=== PATIENT | female | born 2000 | race Caucasian/White ===

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

== ENCOUNTER 2020-01-30 21:28 | Emergency (ER) | payer OTHER ==
[2020-01-30 21:36] VITALS: RESP 18
--- NOTE | 2020-01-30 22:56 | US ---
EXAMINATION TYPE: US venous doppler duplex LE RT DATE OF EXAM: 01/30/2020 10:40 PM COMPARISON: NONE CLINICAL HISTORY: swelling. Swelling right leg x 3 days. No hx of DVT. Patient does not take blood th inners. SIDE PERFORMED: Right TECHNIQUE: The lower extremity deep venous system is examined utilizing real time linear array sonog denise with graded compression, doppler sonography and color-flow sonography. VESSELS IMAGED: External Iliac Vein (EIV) Common Femoral Vein Deep Femoral Vein Greater Saphenous Vein * Femoral Vein Popliteal Vein Small Saphenous Vein * Proximal Calf Veins (* superficial vessels) Right Leg: No evidence of DVT in veins imaged at this time from prox calf veins to EIV. Hypoechoic a freedom with hyperechoic center seen right groin: 2.1 x 1.8 x 0.8 cm. IMPRESSION: No evidence of right leg deep vein thrombosis. 2 x 1 cm right inguinal lymph node noted.
--- NOTE | 2020-01-30 23:05 | ED ---
Extremity Problem HPI - General Source: patient Mode of arrival: ambulatory Limitations: no limitations <Hailey Alfaro - Last Filed: 01/31/20 01:05> <Caron Miranda - Last Filed: 01/31/20 13:37> - General Chief complaint: Extremity Problem,Nontraumatic Stated complaint: R Leg Swelling Time Seen by Provider: 01/30/20 21:44 - History of Present Illness Initial comments: 19-year-old feel presenting for sunburn leg swelling. Patient states that both her legs were so swollen after getting sunburned the right more than left. Patient states that she was on a tube in one H hand. Plan any sunblock. Patient denies any calf pain. She states she is anterior muñoz pain at site of lopez, Denies peeling, blistering. Admits to redness. Denies history of DVT/PE. Denies chest pain SOB or difficulty lying flat. Patient has no additional complaints upon arrival she appears well no signs of acute distress. (Hailey Alfaro) - Related Data Home Medications Medication Instructions Recorded Confirmed Omeprazole [PriLOSEC] 20 mg PO AC-BRKFST PRN 01/30/20 01/30/20 Allergies Allergy/AdvReac Type Severity Reaction Status Date / Time bee venom protein (honey bee) Allergy Swelling Verified 01/30/20 22:10 Review of Systems ROS Other: All systems not noted in ROS Statement are negative. <Hailey Alfaro - Last Filed: 01/31/20 01:05> ROS Other: All systems not noted in ROS Statement are negative. <Caron Miranda - Last Filed: 01/31/20 13:37> ROS Statement: Those systems with pertinent positive or pertinent negative responses have been documented in the HPI. Past Medical History Past Medical History: GERD/Reflux Additional Past Medical History / Comment(s): hx kidney infections, History of Any Multi-Drug Resistant Organisms: None Reported Past Surgical History: No Surgical Hx Reported Additional Past Surgical History / Comment(s): pilonidal cyst removed Past Anesthesia/Blood Transfusion Reactions: No Reported Reaction Additional Past Anesthesia/Blood Transfusion Reaction / Comment(s): anesthesia with wisdom teeth Past Psychological History: ADD/ADHD Smoking Status: Current every day smoker Past Alcohol Use History: Occasional Past Drug Use History: None Reported - Past Family History Mother Additional Family Medical History / Comment(s): ADHD, hip dysplasia <Hailey Alfaro - Last Filed: 01/31/20 01:05> General Exam Limitations: no limitations <Hailey Alfaro - Last Filed: 01/31/20 01:05> - General Exam Comments Initial Comments: General: The patient is awake and alert, in no distress, and does not appear acutely ill. Eye: Pupils are equal, round and reactive to light, extra-ocular movements are intact. No nystagmus. There is normal conjunctiva bilaterally. No signs of icterus. Cardiovascular: There is a regular rate and rhythm. No murmur, rub or gallop is appreciated. Respiratory: Lungs are clear to auscultation, respirations are non-labored, breath sounds are equal. No wheezes, stridor, rales, or rhonchi. Musculoskeletal: Normal ROM, no tenderness. Strength 5/5. Sensation intact. Pulses equal bilaterally 2+. Neurological: A&O x 3. CN II-XII intact, There are no obvious motor or sensory deficits. Coordination appears grossly intact. Speech is normal. Skin: Skin is warm and dry and no rashes or lesions are noted. No pitting edema. mild right lower leg swelling. B/l anterior leg redness noted. no blistering. Psychiatric: Cooperative, appropriate mood & affect, normal judgment. (Hailey Alfaro) Course Vital Signs 01/30/20 01/30/20 21:33 23:09 Temperature 98.1 F 97.7 F Pulse Rate 90 82 Respiratory 18 18 Rate Blood Pressure 124/76 118/72 O2 Sat by Pulse 98 98 Oximetry Medical Decision Making <Hailey Alfaro - Last Filed: 01/31/20 01:05> <Caron Miranda - Last Filed: 01/31/20 13:37> - Medical Decision Making No CP/SOB. Lungs clear. US (-) DVT. Sun burn consistent with hx. I believe is cause of swelling .Recommend symptomatic treatment-aloe, hydration, elevation. patient is agreeable to this care plan and discharge at this time. (Hailey Alfaro) I was available for consultation in the emergency department. The history and physical exam were done by the midlevel provider. I was consulted for this patients care. I reviewed the case with the midlevel provider and based on their presentation of the patient, I agree with the assessment, medical decision making and plan of care as documented. Chart was dictated using [employer] dictation software. Attempts were made to correct any dictation errors however some typographical errors may persist. Patient was seen during the [facility] emergency due to the covid pandemic (Caron Miranda) Disposition Is patient prescribed a controlled substance at d/c from ED?: No Time of Disposition: 23:04 <Hailey Alfaro - Last Filed: 01/31/20 01:05> <Caron Miranda - Last Filed: 01/31/20 13:37> Clinical Impression: Sunburn, Lymphadenopathy Disposition: HOME SELF-CARE Condition: Good Instructions (If sedation given, give patient instructions): Sunburn (ED) Additional Instructions: Please use medication as discussed. Please follow-up with family doctor in the next 2 days- for right groin lymph node. Please return to emergency room if the symptoms increase or worsen or for any other concerns. Referrals: Rayshawn Jensen DO [Primary Care Provider] - 1-2 days
[2020-01-30 23:10] VITALS: BP 118/72; PULSE 82; TEMP 97.7
== END 2020-01-30 23:10 | disposition home or self-care (01) ==
LOC: EC 21:28
DX: L55.9 Sunburn, unspecified (principal); R59.1 Generalized enlarged lymph nodes; K21.9 Gastro-esophageal reflux disease without esophagitis; F17.200 Nicotine dependence, unspecified, uncomplicated; Z91.030 Bee allergy status
CPT/HCPCS: 99283

== ENCOUNTER 2020-03-07 03:51 | Emergency (ER) | payer OTHER ==
[2020-03-07 04:01] VITALS: BP 115/74; PULSE 101; RESP 18; TEMP 98
--- NOTE | 2020-03-07 04:18 | ED ---
Female Urogenital HPI - General Stated complaint: Blood in Urine, Back Pain Time Seen by Provider: 03/07/20 03:59 Source: patient Mode of arrival: ambulatory Limitations: no limitations - History of Present Illness MD Complaint: dysuria Onset/Timin -: hour(s) Location: suprapubic Radiation: non-radiating Severity: mild Quality: cramping, burning Consistency: intermittent Improves with: none Worsens with: urination Patient : No Associated Symptoms: denies other symptoms - Related Data Home Medications Medication Instructions Recorded Confirmed Omeprazole [PriLOSEC] 20 mg PO AC-BRKFST PRN 01/30/20 01/30/20 Previous Rx's Medication Instructions Recorded Cephalexin [Keflex] 500 mg PO Q6HR 3 Days #12 cap 03/07/20 Allergies Allergy/AdvReac Type Severity Reaction Status Date / Time bee venom protein (honey bee) Allergy Swelling Verified 03/07/20 04:01 Review of Systems ROS Statement: Those systems with pertinent positive or pertinent negative responses have been documented in the HPI. ROS Other: All systems not noted in ROS Statement are negative. Constitutional: Denies: fever, chills Respiratory: Denies: cough, dyspnea Cardiovascular: Denies: chest pain, edema Gastrointestinal: Reports: as per HPI, abdominal pain. Denies: nausea, vomiting, diarrhea, constipation Genitourinary: Reports: dysuria, frequency, hematuria. Denies: discharge, abnormal menses Musculoskeletal: Denies: back pain Skin: Denies: rash Neurological: Denies: headache Past Medical History Past Medical History: GERD/Reflux Additional Past Medical History / Comment(s): hx kidney infections, History of Any Multi-Drug Resistant Organisms: None Reported Past Surgical History: No Surgical Hx Reported Additional Past Surgical History / Comment(s): pilonidal cyst removed Past Anesthesia/Blood Transfusion Reactions: No Reported Reaction Additional Past Anesthesia/Blood Transfusion Reaction / Comment(s): anesthesia with wisdom teeth Past Psychological History: ADD/ADHD Smoking Status: Current every day smoker Past Alcohol Use History: Occasional Past Drug Use History: None Reported - Past Family History Mother Additional Family Medical History / Comment(s): ADHD, hip dysplasia General Exam Limitations: no limitations General appearance: alert, in no apparent distress Head exam: Present: atraumatic, normocephalic Eye exam: Present: normal appearance. Absent: scleral icterus, conjunctival injection Respiratory exam: Present: normal lung sounds bilaterally. Absent: respiratory distress, wheezes, rales, rhonchi, stridor Cardiovascular Exam: Present: regular rate, normal rhythm, normal heart sounds. Absent: systolic murmur, diastolic murmur, rubs, gallop GI/Abdominal exam: Present: soft. Absent: distended, tenderness, guarding, rebound, rigid, mass Extremities exam: Present: normal inspection, normal capillary refill. Absent: pedal edema Back exam: Absent: CVA tenderness (R), CVA tenderness (L) Skin exam: Present: warm, dry, intact, normal color. Absent: rash Course Vital Signs 03/07/20 03:57 Temperature 98 F Pulse Rate 101 H Respiratory 18 Rate Blood Pressure 115/74 O2 Sat by Pulse 98 Oximetry Medical Decision Making - Lab Data Lab Results 03/07/20 03/07/20 Range/Units 04:16 04:16 Urine Color Yellow Urine Appearance Clear (Clear) Urine pH 5.5 (5.0-8.0) Ur Specific [place] 1.029 (1.001-1.035) Urine Protein Negative (Negative) Urine Glucose (UA) Negative (Negative) Urine Ketones Negative (Negative) Urine Blood Negative (Negative) Urine Nitrite Negative (Negative) Urine Bilirubin Negative (Negative) Urine Urobilinogen <2.0 (<2.0) mg/dL Ur Leukocyte Esterase Trace H (Negative) Urine RBC 1 (0-5) /hpf Urine WBC 5 (0-5) /hpf Ur Squamous Epith Cells 3 (0-4) /hpf Urine Bacteria Rare H (None) /hpf Urine Mucus Few H (None) /hpf Urine HCG, Qual Not Detected (Not Detectd) Disposition Clinical Impression: Urinary tract infection, Caries Disposition: HOME SELF-CARE Condition: Good Instructions (If sedation given, give patient instructions): Urinary Tract Infection in Women (ED) Prescriptions: Cephalexin [Keflex] 500 mg PO Q6HR 3 Days #12 cap Is patient prescribed a controlled substance at d/c from ED?: No Referrals: Rayshawn Jensen DO [Primary Care Provider] - 1-2 days
[2020-03-07 04:27] LABS: Appearance,Urine Clear (Clear); Bacteria,Urine Rare /hpf; Bilirubin,Urine Negative (Negative); Blood,Urine Negative (Negative); Color,Urine Yellow; Glucose,Urine (UA) Negative (Negative); Ketones,Urine Negative (Negative); Leukocyte Esterase,Urine Trace (Negative); Mucus,Urine Few /hpf; Nitrite,Urine Negative (Negative); PH, Urine 5.5 (5.0-8.0); Protein,Urine Negative (Negative); RBC,Urine 1 /hpf (0-5); Specific Gravity,Urine 1.029 (1.001-1.035); Squamous Epithelial Cell,Urine 3 /hpf (0-4); Urobilinogen,Urine <2.0 mg/dL (<2.0); WBC,Urine 5 /hpf (0-5)
[2020-03-07] MEDS ORDERED: NITROFURANTOIN MONOHYD/M-CRYST 100 MG CAP PO STA (04:42)
== END 2020-03-07 05:35 | disposition home or self-care (01) ==
LOC: EC 03:51
DX: N39.0 Urinary tract infection, site not specified (principal); K02.9 Dental caries, unspecified; K21.9 Gastro-esophageal reflux disease without esophagitis; F17.200 Nicotine dependence, unspecified, uncomplicated; Z91.030 Bee allergy status
CPT/HCPCS: 81001; 81025; 99283

== ENCOUNTER 2020-09-02 18:35 | Emergency (ER) | payer OTHER ==
[2020-09-02 18:49] VITALS: TEMP 98.3
--- NOTE | 2020-09-02 19:27 | ED ---
General Adult HPI - General Chief complaint: Urogenital Stated complaint: female Source: patient, RN notes reviewed Mode of arrival: ambulatory Limitations: no limitations - History of Present Illness Initial comments: 19-year-old female with a past medical history of kidney infections, GERD presents to the emergency room for a chief complaint of vaginal pain. Patient reports that this started 4 days ago. States around the opening of her vagina feels bumpy. States it is painful. Patient states she has not had any significant discharge. Patient does state that she had sexual intercourse with a new partner about a month ago. Patient denies any abdominal pain. Patient denies fevers or chills.Patient has no other complaints at this time including shortness of breath, chest pain, abdominal pain, nausea or vomiting, headache, or visual changes. - Related Data Previous Rx's Medication Instructions Recorded Fluconazole [Diflucan] 150 mg PO DAILY #1 tab 09/02/20 valACYclovir [Valtrex] 1,000 mg PO BID 10 Days #40 tab 09/02/20 Allergies Allergy/AdvReac Type Severity Reaction Status Date / Time bee venom protein (honey bee) Allergy Swelling Verified 09/02/20 19:32 Review of Systems ROS Statement: Those systems with pertinent positive or pertinent negative responses have been documented in the HPI. ROS Other: All systems not noted in ROS Statement are negative. Past Medical History Past Medical History: GERD/Reflux Additional Past Medical History / Comment(s): hx kidney infections, History of Any Multi-Drug Resistant Organisms: None Reported Past Surgical History: No Surgical Hx Reported Additional Past Surgical History / Comment(s): pilonidal cyst removed Past Anesthesia/Blood Transfusion Reactions: No Reported Reaction Additional Past Anesthesia/Blood Transfusion Reaction / Comment(s): anesthesia with wisdom teeth Past Psychological History: ADD/ADHD Smoking Status: Current every day smoker Past Alcohol Use History: Occasional Past Drug Use History: None Reported - Past Family History Mother Additional Family Medical History / Comment(s): ADHD, hip dysplasia General Exam Limitations: no limitations General appearance: alert Head exam: Present: atraumatic, normal inspection Eye exam: Present: normal appearance, PERRL, EOMI ENT exam: Present: normal exam, mucous membranes moist Neck exam: Present: normal inspection, full ROM Respiratory exam: Present: normal lung sounds bilaterally. Absent: respiratory distress, wheezes Cardiovascular Exam: Present: regular rate, normal rhythm, normal heart sounds GI/Abdominal exam: Present: soft, normal bowel sounds. Absent: distended, tenderness, guarding, rebound, rigid External exam: Present: lesions (lesions around posterior vaginal os). Absent: erythema, swelling, lacerations, ecchymosis Speculum exam: Absent: other (refusing pelvic secondary to pain) Neurological exam: Present: alert Course Vital Signs 09/02/20 09/02/20 18:46 19:57 Temperature 98.3 F Pulse Rate 119 H 95 Respiratory 18 16 Rate Blood Pressure 123/86 120/66 O2 Sat by Pulse 99 100 Oximetry Medical Decision Making - Medical Decision Making Vitals are stable. Patient initially tachycardic however is very anxious. This did improve throughout her ER stay. No abdominal pain on exam. Patient does have small ulcerative lesions near the posterior vaginal os. No obvious discharge however patient cannot tolerate a pelvic exam at this time given her pain and refuses to try. Urinalysis is unremarkable. HCG negative. Patient did self swab for Trichomonas and genital culture. Trichomonas negative. Culture pending. Gonorrhea and chlamydia pending. I did swab lesions for possible herpes. At this time clinically is consistent with a initial herpes outbreak. She will be treated with valacyclovir. However patient is also concerned this could be bumps from a yeast infection. She denies any itching and is requesting treatment for this. Patient will be given Diflucan. Patient does have an appointment with her [facility] in the next month. She will call to see if she can get in earlier. She has any worsening symptoms she will return to the emergency room. - Lab Data Lab Results 09/02/20 09/02/20 09/02/20 Range/Units 19:50 19:50 20:00 Urine Color Yellow Urine Appearance Cloudy H (Clear) Urine pH 6.5 (5.0-8.0) Ur Specific [place] 1.024 (1.001-1.035) Urine Protein Trace H (Negative) Urine Glucose (UA) Negative (Negative) Urine Ketones Negative (Negative) Urine Blood Negative (Negative) Urine Nitrite Negative (Negative) Urine Bilirubin Negative (Negative) Urine Urobilinogen <2.0 (<2.0) mg/dL Ur Leukocyte Esterase Small H (Negative) Urine RBC 3 (0-5) /hpf Urine WBC 4 (0-5) /hpf Ur Squamous Epith Cells 9 H (0-4) /hpf Urine Bacteria Rare H (None) /hpf Urine Mucus Many H (None) /hpf Urine Yeast (Budding) Few H (None) /hpf Urine HCG, Qual Not Detected (Not Detectd) Trichomonas Ag (Rapid) Negative (Negative) Disposition Clinical Impression: Genital lesion, female Disposition: HOME SELF-CARE Condition: Good Instructions (If sedation given, give patient instructions): Genital Herpes Simplex (ED) Additional Instructions: Please take medications as directed. You're being treated for a possible herpes outbreak, also a yeast infection. Please follow-up with your [facility]. Call to see if you can get an earlier appointment. Return to the emergency room for any worsening symptoms. Prescriptions: Fluconazole [Diflucan] 150 mg PO DAILY #1 tab valACYclovir [Valtrex] 1,000 mg PO BID 10 Days #40 tab Is patient prescribed a controlled substance at d/c from ED?: No Referrals: Rayshawn Jensen DO [Primary Care Provider] - 1-2 days Time of Disposition: 20:34
[2020-09-02 19:58] VITALS: BP 120/66; PULSE 95; RESP 16
[2020-09-02 20:10] LABS: Appearance,Urine Cloudy (Clear); Bacteria,Urine Rare /hpf; Bilirubin,Urine Negative (Negative); Blood,Urine Negative (Negative); Budding Yeast,Urine Few /hpf; Color,Urine Yellow; Glucose,Urine (UA) Negative (Negative); Ketones,Urine Negative (Negative); Leukocyte Esterase,Urine Small (Negative); Mucus,Urine Many /hpf; Nitrite,Urine Negative (Negative); PH, Urine 6.5 (5.0-8.0); Protein,Urine Trace (Negative); RBC,Urine 3 /hpf (0-5); Specific Gravity,Urine 1.024 (1.001-1.035); Squamous Epithelial Cell,Urine 9 /hpf (0-4); Urobilinogen,Urine <2.0 mg/dL (<2.0); WBC,Urine 4 /hpf (0-5)
== END 2020-09-02 20:58 | disposition home or self-care (01) ==
LOC: EC 18:35
DX: N94.89 Other specified conditions associated with female genital organs and menstrual cycle (principal); F17.200 Nicotine dependence, unspecified, uncomplicated; Z91.030 Bee allergy status
CPT/HCPCS: 81001; 81025; 87070; 87491; 87529; 87591; 87808; 99283

== ENCOUNTER 2020-09-09 19:21 | Emergency (ER) | payer OTHER ==
[2020-09-09 19:26] VITALS: TEMP 98
[2020-09-09] MEDS ORDERED: SODIUM CHLORIDE 0.9% 1,000 ML IV ONE (19:49)
[2020-09-09] MEDS ORDERED: MAGNESIUM CITRATE 296 ML BOTTLE PO ONE (19:49)
[2020-09-09 20:09] LABS: HGB 15.4 gm/dL (11.4-16.0); RBC 5.54 m/uL (3.80-5.40); WBC 9.6 k/uL (4.0-11.0)
[2020-09-09 20:10] LABS: Basophils # (A) 0.1 k/uL (0-0.2); Basophils % (A) 1 %; Eosinophils # (A) 0.3 k/uL (0-0.7); Eosinophils % (A) 3 %; Lymphocytes # (A) 2.3 k/uL (1.0-4.8); Lymphocytes % (A) 24 %; MCH 27.8 pg (25.0-35.0); MCHC 32.8 g/dL (31.0-37.0); MCV 84.8 fL (80.0-100.0); Mean Platelet Volume 6.6; Monocytes # (A) 0.5 k/uL (0-1.0); Monocytes % (A) 5 %; Neutrophils # (A) 6.2 k/uL (1.3-7.7); Neutrophils % (A) 65 %; Platelet Count 294 k/uL (150-450); RDW 12.6 % (11.5-15.5)
--- NOTE | 2020-09-09 20:13 | XR ---
EXAMINATION TYPE: XR KUB DATE OF EXAM: 09/09/2020 COMPARISON: NONE HISTORY: Abdominal pain TECHNIQUE: 2 views upright FINDINGS: There is no sign of intestinal obstruction or pneumoperitoneum. Fecal pattern is normal. Th ere is no sign of a mass. There are no pathologic calcifications over the kidneys. Lung bases are jaylin ar. IMPRESSION: Nonacute abdomen.
[2020-09-09 20:25] LABS: African American GFR (CKD) >90 (>60 ml/min/1.73 sqM); Anion Gap 10 mmol/L; Blood Urea Nitrogen 8 mg/dL (7-17); Carbon Dioxide 22 mmol/L (22-30); Chloride 105 mmol/L (98-107); Glucose 87 mg/dL (74-99); Potassium 4.5 mmol/L (3.5-5.1); Sodium 137 mmol/L (137-145)
[2020-09-09 20:26] LABS: ALT 17 U/L (4-34); AST 25 U/L (14-36); Albumin 4.6 g/dL (3.5-5.0); Alkaline Phosphatase 91 U/L (38-126); Calcium 9.9 mg/dL (8.4-10.2); Non-African American GFR(CKD) >90 (>60 ml/min/1.73 sqM); Total Bilirubin 0.4 mg/dL (0.2-1.3)
[2020-09-09 20:59] VITALS: BP 120/62; PULSE 82; RESP 18
--- NOTE | 2020-09-09 22:43 | ED ---
Abdominal Pain HPI - General Chief Complaint: Abdominal Pain Stated Complaint: Constipation Time Seen by Provider: 09/09/20 19:32 Source: patient Mode of arrival: ambulatory Limitations: no limitations - History of Present Illness Initial Comments: [id number] female presenting for diffuse abdominal distention, constipation. Patient states she is out of bowel movement 3 days she states she still passing gas she denies a nausea vomiting upper abdominal pain. She states she is diffuse mid abdominal distention and discomfort at times. Patient states she has no dysuria urgency frequency. She states she now feels a fullness in her back. Patient sates she has had history of kidney infections. Patient denies any fevers chills general malaise. Patient states that she did take her grandmother's pain medications and is not sure if this is related. she states she only took 1.5 pills a day ago patient denies , vaginal bleeding, vaginal discharge. pt denies additional complaints. pt states she has taken miralax. - Related Data Home Medications Medication Instructions Recorded Confirmed Methylphenidate HCl 18 mg PO DAILY 09/09/20 09/09/20 [Methylphenidate HCl ER] Omeprazole [PriLOSEC] 20 mg PO DAILY PRN 09/09/20 09/09/20 Previous Rx's Medication Instructions Recorded valACYclovir [Valtrex] 1,000 mg PO BID 10 Days #40 tab 09/02/20 Allergies Allergy/AdvReac Type Severity Reaction Status Date / Time bee venom protein (honey bee) Allergy Swelling Verified 09/09/20 19:26 Review of Systems ROS Statement: Those systems with pertinent positive or pertinent negative responses have been documented in the HPI. ROS Other: All systems not noted in ROS Statement are negative. Past Medical History Past Medical History: GERD/Reflux Additional Past Medical History / Comment(s): hx kidney infections, History of Any Multi-Drug Resistant Organisms: None Reported Past Surgical History: No Surgical Hx Reported Additional Past Surgical History / Comment(s): pilonidal cyst removed Past Anesthesia/Blood Transfusion Reactions: No Reported Reaction Additional Past Anesthesia/Blood Transfusion Reaction / Comment(s): anesthesia with wisdom teeth Past Psychological History: ADD/ADHD Smoking Status: Current every day smoker Past Alcohol Use History: Occasional Past Drug Use History: None Reported - Past Family History Mother Additional Family Medical History / Comment(s): ADHD, hip dysplasia General Exam - General Exam Comments Initial Comments: General: The patient is awake and alert, in no distress Eye: +3 mm pupils are equal, round and reactive to light, extra-ocular movements are intact. No nystagmus. There is normal conjunctiva bilaterally. No signs of icterus. Ears, nose, mouth and throat: There are moist mucous membranes and no oral lesions. Neck: The neck is supple, there is no tenderness or JVD. Cardiovascular: There is a regular rate and rhythm. No murmur, rub or gallop is appreciated. Respiratory: Lungs are clear to auscultation, respirations are non-labored, breath sounds are equal. No wheezes, stridor, rales, or rhonchi. Gastrointestinal: Soft, non-distended, mild diffuse mid abdominal tenderness, abdomen without masses or organomegaly noted. There is no rebound or guarding present. Musculoskeletal: Normal ROM, no tenderness. Strength 5/5. Sensation intact. Radial and DP pulses equal bilaterally 2+. Neurological: A&O x 3. CN II-XII intact grossly, There are no obvious motor or sensory deficits. Coordination appears grossly intact. Speech is normal. Skin: Skin is warm and dry and no rashes or lesions are noted. Psychiatric: Cooperative, appropriate mood & affect, normal judgment. Limitations: no limitations Course Vital Signs 09/09/20 09/09/20 19:23 20:26 Temperature 98.0 F Pulse Rate 130 H 82 Respiratory 20 18 Rate Blood Pressure 120/81 120/62 O2 Sat by Pulse 96 Oximetry Medical Decision Making - Medical Decision Making 19yo female presenting for constipation x 3 days. no fecal impaction on xr. no obstruction. patient does not appear to have acute abdomen. pt cannot provide urine sample, became frustrated and wanted to leave. initially i considered discharing patien tbut at this time feel uncomfortable with final disposition without urinalysis. offered enema/catheterization patient she continued to refuse. Patient states just wants to go home and try to poop she states she would come back if she is unable to have a bowel movement. I discussed my discomfort with discharge, pt left AMA. Attending Gus - Lab Data Result diagrams: 09/09/20 19:54 09/09/20 19:56 Lab Results 09/09/20 09/09/20 Range/Units 19:54 19:56 WBC 9.6 (4.0-11.0) k/uL RBC 5.54 H (3.80-5.40) m/uL Hgb 15.4 (11.4-16.0) gm/dL Hct 47.0 H (34.0-46.0) % MCV 84.8 (80.0-100.0) fL MCH 27.8 (25.0-35.0) pg MCHC 32.8 (31.0-37.0) g/dL RDW 12.6 (11.5-15.5) % Plt Count 294 (150-450) k/uL MPV 6.6 Neutrophils % 65 % Lymphocytes % 24 % Monocytes % 5 % Eosinophils % 3 % Basophils % 1 % Neutrophils # 6.2 (1.3-7.7) k/uL Lymphocytes # 2.3 (1.0-4.8) k/uL Monocytes # 0.5 (0-1.0) k/uL Eosinophils # 0.3 (0-0.7) k/uL Basophils # 0.1 (0-0.2) k/uL Sodium 137 (137-145) mmol/L Potassium 4.5 (3.5-5.1) mmol/L Chloride 105 (98-107) mmol/L Carbon Dioxide 22 (22-30) mmol/L Anion Gap 10 mmol/L BUN 8 (7-17) mg/dL Creatinine 0.73 (0.52-1.04) mg/dL Est GFR (CKD-EPI)AfAm >90 (>60 ml/min/1.73 sqM) Est GFR (CKD-EPI)NonAf >90 (>60 ml/min/1.73 sqM) Glucose 87 (74-99) mg/dL Calcium 9.9 (8.4-10.2) mg/dL Total Bilirubin 0.4 (0.2-1.3) mg/dL AST 25 (14-36) U/L ALT 17 (4-34) U/L Alkaline Phosphatase 91 (38-126) U/L Total Protein 8.0 (6.3-8.2) g/dL Albumin 4.6 (3.5-5.0) g/dL Disposition Clinical Impression: Constipation Disposition: Left Against Medical Advice Condition: Undetermined Instructions (If sedation given, give patient instructions): Constipation (DC), High Fiber Diet (ED) Additional Instructions: Please use medication as discussed. Please follow-up with family doctor in the next 2 days. Please return to emergency room if the symptoms increase or worsen or for any other concerns. Is patient prescribed a controlled substance at d/c from ED?: No Referrals: Rayshawn Jensen DO [Primary Care Provider] - 1-2 days Time of Disposition: 22:43
[2020-09-09] MEDS ORDERED: GLYCERIN ADULT SUPPOSITORY 1 EACH RECTAL STA (22:57)
== END 2020-09-09 23:16 | disposition left against medical advice (07) ==
LOC: EC 19:21
DX: K59.00 Constipation, unspecified (principal); K21.9 Gastro-esophageal reflux disease without esophagitis; F17.200 Nicotine dependence, unspecified, uncomplicated; F90.9 Attention-deficit hyperactivity disorder, unspecified type; Z91.030 Bee allergy status; Z79.899 Other long term (current) drug therapy
CPT/HCPCS: 36415; 74018; 80053; 85025; 96360; 99284

== ENCOUNTER 2021-03-24 00:09 | Emergency (ER) | payer OTHER ==
[2021-03-24 00:15] VITALS: RESP 22
[2021-03-24] MEDS ORDERED: IBUPROFEN 600 MG STARTER PACK 4 TAB BTL PO STA (00:28)
[2021-03-24] MEDS ORDERED: ACETAMINOPHEN TAB 500 MG TAB PO STA (00:28)
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
--- NOTE | 2021-03-24 01:29 | XR ---
EXAMINATION TYPE: XR shoulder complete LT DATE OF EXAM: 03/24/2021 COMPARISON: NONE HISTORY: Shoulder pain TECHNIQUE: 3 views FINDINGS: I see no fracture nor dislocation. Joint spaces are normal. There are no pathologic calcifi cations. IMPRESSION: Negative left shoulder exam.
[2021-03-24 01:42] VITALS: BP 127/78; PULSE 78; TEMP 98
== END 2021-03-24 01:41 | disposition home or self-care (01) ==
LOC: EC 00:09
DX: S46.912A Strain of unspecified muscle, fascia and tendon at shoulder and upper arm level, left arm, initial encounter (principal); K21.9 Gastro-esophageal reflux disease without esophagitis; F90.9 Attention-deficit hyperactivity disorder, unspecified type; F32.9 Major depressive disorder, single episode, unspecified; F17.200 Nicotine dependence, unspecified, uncomplicated; Z91.030 Bee allergy status; X50.0XXA Overexertion from strenuous movement or load, initial encounter
CPT/HCPCS: 99283

== ENCOUNTER 2021-03-27 01:23 | Emergency (ER) | payer OTHER ==
[2021-03-27 01:30] VITALS: RESP 18; TEMP 98.9
[2021-03-27] MEDS ORDERED: IBUPROFEN 400 MG TAB PO STA (01:45)
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
--- NOTE | 2021-03-27 02:37 | XR ---
EXAMINATION TYPE: XR ankle complete LT DATE OF EXAM: 03/27/2021 COMPARISON: NONE HISTORY: Pain TECHNIQUE: 3 views FINDINGS: Ankle mortise is anatomic. I see no fracture nor dislocation. Joint spaces are fairly alphonse l. IMPRESSION: Negative left ankle exam. No fracture.
--- NOTE | 2021-03-27 02:38 | XR ---
EXAMINATION TYPE: XR foot complete LT DATE OF EXAM: 03/27/2021 COMPARISON: NONE HISTORY: Pain TECHNIQUE: 3 views FINDINGS: Metatarsals appear intact. The toes appear intact. I see no fracture nor dislocation. There is some soft tissue swelling of the forefoot. IMPRESSION: Soft tissue swelling. No fracture.
[2021-03-27 03:11] VITALS: BP 120/68; PULSE 95
== END 2021-03-27 03:11 | disposition home or self-care (01) ==
LOC: EC 01:23
DX: S99.922A Unspecified injury of left foot, initial encounter (principal); K21.9 Gastro-esophageal reflux disease without esophagitis; F90.9 Attention-deficit hyperactivity disorder, unspecified type; F32.9 Major depressive disorder, single episode, unspecified; F17.200 Nicotine dependence, unspecified, uncomplicated; Y04.0XXA Assault by unarmed brawl or fight, initial encounter
CPT/HCPCS: 99284

== ENCOUNTER → 2021-05-20 | Outpatient (CLI) | payer OTHER ==
--- NOTE | 2021-05-21 08:09 | US ---
EXAMINATION TYPE: US pelvic complete DATE OF EXAM: 05/20/2021 COMPARISON: NONE CLINICAL HISTORY: R10.2 pelvic pain N92.1 Metrorrhagia. Irregular Menstruation, TECHNIQUE: Transabdominal (TA). Transabdominal sonographic images of the pelvis were acquired. Date of LMP: Unknow date 03/2021 EXAM MEASUREMENTS: Uterus: 8.0 x 3.9 x 2.8 cm Endometrial Stripe: 0.8 cm Right Ovary: 3.4 x 2.6 x 1.8 cm Left Ovary: 3.4 x 2.1 x 1.9 cm 1. Uterus: Anteverted wnl 2. Endometrium: wnl 3. Right Ovary: wnl 4. Left Ovary: wnl 5. Bilateral Adnexa: wnl 6. Posterior cul-de-sac: wnl IMPRESSION: 1. Normal pelvic ultrasound
== END | disposition home or self-care (01) ==
LOC: RADUSWWP 16:21
PROVIDERS: ATTEND Obstetrics & Gynecology
DX: N92.1 Excessive and frequent menstruation with irregular cycle (principal)
CPT/HCPCS: 76856

== ENCOUNTER → 2021-07-23 | Outpatient (CLI) | payer OTHER ==
--- NOTE | 2021-07-23 08:00 | US ---
EXAMINATION TYPE: US abdomen complete DATE OF EXAM: 07/23/2021 COMPARISON: 2019 CLINICAL HISTORY: K81.0 Acute cholecystitis. Patient ate before exam, patient states she has bloatin g after eating. EXAM MEASUREMENTS: Liver Length: 13.2 cm Gallbladder Wall: 0.2 cm CBD: 0.3 cm Spleen: 7.7 cm Right Kidney: 9.3x5.0x5.2 cm Left Kidney: 11.6x4.8x5.4 cm Pancreas: Obscured by bowel gas Liver: wnl Gallbladder: Gallstone noted, 0.6cm Evidence for sonographic Perrin's sign: No CBD: wnl Spleen: wnl, Limited due to bowel Right Kidney: wnl Left Kidney: wnl Upper IVC: wnl Abd Aorta: wnl IMPRESSION: 1. Cholelithiasis
== END | disposition home or self-care (01) ==
LOC: RADUSWWP 07:24
PROVIDERS: ATTEND Family Medicine
DX: K80.20 Calculus of gallbladder without cholecystitis without obstruction (principal)
CPT/HCPCS: 76700

== ENCOUNTER 2021-08-28 00:35 | Emergency (ER) | payer OTHER ==
[2021-08-28 00:49] VITALS: RESP 18; TEMP 97.7
[2021-08-28] MEDS ORDERED: SODIUM CHLORIDE 0.9% 1,000 ML IV STA (01:14)
--- NOTE | 2021-08-28 01:16 | ED ---
Syncope HPI - General Chief Complaint: Syncope Stated Complaint: Near Syncope Time Seen by Provider: 08/28/21 00:43 Source: patient, EMS Mode of arrival: EMS - History of Present Illness Initial Comments: 's patient is a 20-year-old woman who presents to be evaluated after she had nearly passed out. Patient states she had been in the shower tonight and then started feeling lightheaded. She got out of the shower she had an episode of vomiting with a little bit of greenish material she then was feeling short of breath for. EMS was called and brought the patient here for evaluation. Patient states that her symptoms have resolved and she feels nearly back to normal now. MD Complaint: felt faint, almost passed out -: minutes(s) Prodromal Symptoms: lightheaded, shortness of breath, nausea/vomiting Witnessed: no Injuries Sustained Associated with Event: None Current Symptoms: back to baseline Context: other Treatments Prior to Arrival: none - Related Data Home Medications Medication Instructions Recorded Confirmed Omeprazole [PriLOSEC] 20 mg PO DAILY PRN 09/09/20 08/08/21 Albuterol Inhaler [Ventolin Hfa 1 puff INHALATION DIRECTED PRN 08/01/21 08/08/21 Inhaler] EPINEPHrine (Auto Inject) [Epipen] 0.3 mg IM ONCE PRN 08/01/21 08/08/21 Ibuprofen 800 mg PO Q8H PRN 08/01/21 08/08/21 Previous Rx's Medication Instructions Recorded Acetaminophen Tab [Tylenol] 650 mg PO Q6H #30 tab 08/08/21 Docusate [Colace] 100 mg PO BID #20 capsule 08/08/21 Ibuprofen [Motrin] 600 mg PO Q6HR PRN #40 tab 08/08/21 oxyCODONE HCL [OxyIR] 5 mg PO Q6H PRN 3 Days #10 tab 08/08/21 Allergies Allergy/AdvReac Type Severity Reaction Status Date / Time bee venom protein (honey bee) Allergy Swelling Verified 08/08/21 07:01 tide Allergy Rash/Hives Uncoded 08/08/21 07:01 Review of Systems ROS Statement: Those systems with pertinent positive or pertinent negative responses have been documented in the HPI. ROS Other: All systems not noted in ROS Statement are negative. Constitutional: Denies: fever, chills, weakness Respiratory: Reports: dyspnea. Denies: cough, wheezes, hemoptysis Cardiovascular: Denies: chest pain, palpitations, edema Gastrointestinal: Reports: nausea, vomiting. Denies: abdominal pain, diarrhea, constipation, hematemesis Genitourinary: Reports: abnormal menses. Denies: dysuria, hematuria Musculoskeletal: Denies: back pain Skin: Denies: rash Neurological: Denies: headache, weakness, numbness Past Medical History Past Medical History: Asthma, GERD/Reflux Additional Past Medical History / Comment(s): Hx kidney infections. "Stomach issues." Hx "chest pain and suspected Covid 07/12/21." History of Any Multi-Drug Resistant Organisms: None Reported Past Surgical History: No Surgical Hx Reported, Cholecystectomy Additional Past Surgical History / Comment(s): Pilonidal cyst removed. [place] teeth extracted. Past Anesthesia/Blood Transfusion Reactions: Motion Sickness Additional Past Anesthesia/Blood Transfusion Reaction / Comment(s): anesthesia with wisdom teeth Past Psychological History: ADD/ADHD, Anxiety, Depression Smoking Status: Former smoker, Vaper Past Alcohol Use History: Occasional Past Drug Use History: Marijuana - Past Family History Mother Additional Family Medical History / Comment(s): ADHD, hip dysplasia. General Exam General appearance: alert, in no apparent distress Head exam: Present: atraumatic, normocephalic Eye exam: Present: PERRL, EOMI. Absent: scleral icterus, conjunctival injection Neck exam: Present: normal inspection Respiratory exam: Present: normal lung sounds bilaterally. Absent: respiratory distress, wheezes, rales, rhonchi, stridor Cardiovascular Exam: Present: regular rate, normal rhythm, normal heart sounds. Absent: systolic murmur, diastolic murmur, rubs, gallop GI/Abdominal exam: Present: soft, other (Patient has laparoscopy incisions that are clean dry and intact. No evidence of infection. They appear to be healing well). Absent: distended, tenderness, guarding, rebound, rigid, mass Extremities exam: Present: normal inspection, normal capillary refill. Absent: pedal edema, calf tenderness Back exam: Present: normal inspection. Absent: CVA tenderness (R), CVA tenderness (L) Neurological exam: Present: alert, oriented X3, CN II-XII intact. Absent: motor sensory deficit Skin exam: Present: warm, dry, intact, normal color. Absent: rash Course Vital Signs 08/28/21 00:37 Temperature 97.7 F Pulse Rate 97 Respiratory 18 Rate Blood Pressure 114/81 O2 Sat by Pulse 100 Oximetry EKG Findings - EKG Results: EKG: interpreted by KATIED, sinus rhythm (With sinus arrhythmia, rate 72 bpm), normal axis, normal QRS, normal ST/T, no acute changes Medical Decision Making - Lab Data Result diagrams: 08/28/21 01:19 08/28/21 01:19 Lab Results 08/28/21 08/28/21 08/28/21 Range/Units 01:19 01:19 01:19 WBC 9.3 (4.0-11.0) k/uL RBC 4.32 (3.80-5.40) m/uL Hgb 12.6 (11.4-16.0) gm/dL Hct 38.7 (34.0-46.0) % MCV 89.5 (80.0-100.0) fL MCH 29.2 (25.0-35.0) pg MCHC 32.7 (31.0-37.0) g/dL RDW 12.4 (11.5-15.5) % Plt Count 285 (150-450) k/uL MPV 7.0 Neutrophils % 64 % Lymphocytes % 27 % Monocytes % 6 % Eosinophils % 2 % Basophils % 0 % Neutrophils # 6.0 (1.3-7.7) k/uL Lymphocytes # 2.5 (1.0-4.8) k/uL Monocytes # 0.5 (0-1.0) k/uL Eosinophils # 0.1 (0-0.7) k/uL Basophils # 0.0 (0-0.2) k/uL PT 10.5 (9.0-12.0) sec INR 1.0 (<1.2) APTT 24.6 (22.0-30.0) sec D-Dimer <0.17 (<0.60) mg/L FEU Sodium 137 (137-145) mmol/L Potassium 4.3 (3.5-5.1) mmol/L Chloride 106 (98-107) mmol/L Carbon Dioxide 25 (22-30) mmol/L Anion Gap 6 mmol/L BUN 11 (7-17) mg/dL Creatinine 0.76 (0.52-1.04) mg/dL Est GFR (CKD-EPI)AfAm >90 (>60 ml/min/1.73 sqM) Est GFR (CKD-EPI)NonAf >90 (>60 ml/min/1.73 sqM) Glucose 90 (74-99) mg/dL Calcium 9.5 (8.4-10.2) mg/dL Total Bilirubin 0.4 (0.2-1.3) mg/dL AST 17 (14-36) U/L ALT 10 (4-34) U/L Alkaline Phosphatase 71 (38-126) U/L Total Protein 6.7 (6.3-8.2) g/dL Albumin 4.0 (3.5-5.0) g/dL Urine Color Urine Appearance (Clear) Urine pH (5.0-8.0) Ur Specific [place] (1.001-1.035) Urine Protein (Negative) Urine Glucose (UA) (Negative) Urine Ketones (Negative) Urine Blood (Negative) Urine Nitrite (Negative) Urine Bilirubin (Negative) Urine Urobilinogen (<2.0) mg/dL Ur Leukocyte Esterase (Negative) Urine RBC (0-5) /hpf Urine WBC (0-5) /hpf Ur Squamous Epith Cells (0-4) /hpf Urine Mucus (None) /hpf Urine HCG, Qual (Not Detectd) 08/28/21 08/28/21 Range/Units 01:32 01:32 WBC (4.0-11.0) k/uL RBC (3.80-5.40) m/uL Hgb (11.4-16.0) gm/dL Hct (34.0-46.0) % MCV (80.0-100.0) fL MCH (25.0-35.0) pg MCHC (31.0-37.0) g/dL RDW (11.5-15.5) % Plt Count (150-450) k/uL MPV Neutrophils % % Lymphocytes % % Monocytes % % Eosinophils % % Basophils % % Neutrophils # (1.3-7.7) k/uL Lymphocytes # (1.0-4.8) k/uL Monocytes # (0-1.0) k/uL Eosinophils # (0-0.7) k/uL Basophils # (0-0.2) k/uL PT (9.0-12.0) sec INR (<1.2) APTT (22.0-30.0) sec D-Dimer (<0.60) mg/L FEU Sodium (137-145) mmol/L Potassium (3.5-5.1) mmol/L Chloride (98-107) mmol/L Carbon Dioxide (22-30) mmol/L Anion Gap mmol/L BUN (7-17) mg/dL Creatinine (0.52-1.04) mg/dL Est GFR (CKD-EPI)AfAm (>60 ml/min/1.73 sqM) Est GFR (CKD-EPI)NonAf (>60 ml/min/1.73 sqM) Glucose (74-99) mg/dL Calcium (8.4-10.2) mg/dL Total Bilirubin (0.2-1.3) mg/dL AST (14-36) U/L ALT (4-34) U/L Alkaline Phosphatase (38-126) U/L Total Protein (6.3-8.2) g/dL Albumin (3.5-5.0) g/dL Urine Color Yellow Urine Appearance Clear (Clear) Urine pH 7.5 (5.0-8.0) Ur Specific [place] 1.023 (1.001-1.035) Urine Protein Trace H (Negative) Urine Glucose (UA) Negative (Negative) Urine Ketones Negative (Negative) Urine Blood Moderate H (Negative) Urine Nitrite Negative (Negative) Urine Bilirubin Negative (Negative) Urine Urobilinogen <2.0 (<2.0) mg/dL Ur Leukocyte Esterase Negative (Negative) Urine RBC 5 (0-5) /hpf Urine WBC 1 (0-5) /hpf Ur Squamous Epith Cells 2 (0-4) /hpf Urine Mucus Few H (None) /hpf Urine HCG, Qual Not Detected (Not Detectd) Disposition Clinical Impression: Near syncope Disposition: HOME SELF-CARE Condition: Good Instructions (If sedation given, give patient instructions): Near Syncope (ED) Is patient prescribed a controlled substance at d/c from ED?: No Referrals: Rayshawn Jensen DO [Primary Care Provider] - 1-2 days
[2021-08-28 01:42] LABS: Basophils % (A) 0 %; Eosinophils # (A) 0.1 k/uL (0-0.7); Eosinophils % (A) 2 %; HCT 38.7 % (34.0-46.0); HGB 12.6 gm/dL (11.4-16.0); Lymphocytes # (A) 2.5 k/uL (1.0-4.8); Lymphocytes % (A) 27 %; MCH 29.2 pg (25.0-35.0); MCHC 32.7 g/dL (31.0-37.0); MCV 89.5 fL (80.0-100.0); Monocytes # (A) 0.5 k/uL (0-1.0); Monocytes % (A) 6 %; Neutrophils % (A) 64 %; Platelet Count 285 k/uL (150-450); RBC 4.32 m/uL (3.80-5.40); RDW 12.4 % (11.5-15.5); WBC 9.3 k/uL (4.0-11.0)
[2021-08-28 01:56] LABS: Partial Thromboplastin Time 24.6 sec (22.0-30.0); Prothrombin Time 10.5 sec (9.0-12.0)
[2021-08-28 02:01] LABS: ALT 10 U/L (4-34); AST 17 U/L (14-36); African American GFR (CKD) >90 (>60 ml/min/1.73 sqM); Alkaline Phosphatase 71 U/L (38-126); Anion Gap 6 mmol/L; Blood Urea Nitrogen 11 mg/dL (7-17); Calcium 9.5 mg/dL (8.4-10.2); Carbon Dioxide 25 mmol/L (22-30); Chloride 106 mmol/L (98-107); Glucose 90 mg/dL (74-99); Non-African American GFR(CKD) >90 (>60 ml/min/1.73 sqM); Potassium 4.3 mmol/L (3.5-5.1); Sodium 137 mmol/L (137-145); Total Bilirubin 0.4 mg/dL (0.2-1.3); Total Protein 6.7 g/dL (6.3-8.2)
--- NOTE | 2021-08-28 02:03 | XR ---
EXAMINATION TYPE: XR chest 1V portable DATE OF EXAM: 08/28/2021 COMPARISON: 09/13/2019 HISTORY: Syncope TECHNIQUE: FINDINGS: Heart is normal. Lungs are clear of infiltrate. There is no heart failure. Pulmonary vascul arity is normal. Bony thorax is intact. IMPRESSION: Normal chest. There is clearing of the minimal density left lung base compared to old exa m.
[2021-08-28 02:10] LABS: Appearance,Urine Clear (Clear); Bilirubin,Urine Negative (Negative); Blood,Urine Moderate (Negative); Color,Urine Yellow; Glucose,Urine (UA) Negative (Negative); Ketones,Urine Negative (Negative); Leukocyte Esterase,Urine Negative (Negative); Mucus,Urine Few /hpf; Nitrite,Urine Negative (Negative); PH, Urine 7.5 (5.0-8.0); Protein,Urine Trace (Negative); RBC,Urine 5 /hpf (0-5); Specific Gravity,Urine 1.023 (1.001-1.035); Squamous Epithelial Cell,Urine 2 /hpf (0-4); Urobilinogen,Urine <2.0 mg/dL (<2.0); WBC,Urine 1 /hpf (0-5)
[2021-08-28 03:11] VITALS: BP 110/74; PULSE 85
== END 2021-08-28 03:11 | disposition home or self-care (01) ==
LOC: EC 00:35
DX: R55 Syncope and collapse (principal); J45.909 Unspecified asthma, uncomplicated; K21.9 Gastro-esophageal reflux disease without esophagitis; F41.9 Anxiety disorder, unspecified; F32.A Depression, unspecified; F12.90 Cannabis use, unspecified, uncomplicated; Z90.49 Acquired absence of other specified parts of digestive tract; F90.9 Attention-deficit hyperactivity disorder, unspecified type; Z87.891 Personal history of nicotine dependence
CPT/HCPCS: 36415; 71045; 80053; 81001; 81025; 85025; 85379; 85610; 85730; 93005; 99285

== ENCOUNTER 2021-09-23 00:38 | Emergency (ER) | payer OTHER ==
[2021-09-23 00:45] VITALS: TEMP 98.5
[2021-09-23] MEDS ORDERED: KETOROLAC 15 MG/ML 1 ML VIAL IVP STA (01:03)
[2021-09-23] MEDS ORDERED: SODIUM CHLORIDE 0.9% 500 ML 500 ML IV STA (01:03)
--- NOTE | 2021-09-23 01:11 | ED ---
General Adult HPI - General Chief complaint: Abdominal Pain Stated complaint: RLQ pain Time Seen by Provider: 09/23/21 01:00 Source: patient, RN notes reviewed, old records reviewed Mode of arrival: ambulatory - History of Present Illness Initial comments: 20-year-old female presents with complaints of pelvic pain for one week. She states that it is her lower abdomen that is painful, is intermittent and achy in nature. She states that she is due to start her period tomorrow. She is sexually active, unknown if she is . Denies any dysuria or vaginal discharge. She states that ovarian cancer runs in her family. She does have a history of cholecystectomy, GERD and asthma. -: week(s) (1) Location: pelvis Radiation: non-radiation Severity scale (1-10): 5 Quality: aching Consistency: intermittent Associated Symptoms: denies other symptoms - Related Data Home Medications Medication Instructions Recorded Confirmed Omeprazole [PriLOSEC] 20 mg PO DAILY PRN 09/09/20 08/08/21 Albuterol Inhaler [Ventolin Hfa 1 puff INHALATION DIRECTED PRN 08/01/21 08/08/21 Inhaler] EPINEPHrine (Auto Inject) [Epipen] 0.3 mg IM ONCE PRN 08/01/21 08/08/21 Ibuprofen 800 mg PO Q8H PRN 08/01/21 08/08/21 Previous Rx's Medication Instructions Recorded Acetaminophen Tab [Tylenol] 650 mg PO Q6H #30 tab 08/08/21 Docusate [Colace] 100 mg PO BID #20 capsule 08/08/21 Ibuprofen [Motrin] 600 mg PO Q6HR PRN #40 tab 08/08/21 oxyCODONE HCL [OxyIR] 5 mg PO Q6H PRN 3 Days #10 tab 08/08/21 Allergies Allergy/AdvReac Type Severity Reaction Status Date / Time bee venom protein (honey bee) Allergy Swelling Verified 09/23/21 00:45 tide Allergy Rash/Hives Uncoded 09/23/21 00:45 Review of Systems ROS Statement: Those systems with pertinent positive or pertinent negative responses have been documented in the HPI. ROS Other: All systems not noted in ROS Statement are negative. Past Medical History Past Medical History: Asthma, GERD/Reflux Additional Past Medical History / Comment(s): Hx kidney infections. "Stomach issues." Hx "chest pain and suspected Covid 07/12/21." History of Any Multi-Drug Resistant Organisms: None Reported Past Surgical History: No Surgical Hx Reported, Cholecystectomy Additional Past Surgical History / Comment(s): Pilonidal cyst removed. [place] teeth extracted. Past Anesthesia/Blood Transfusion Reactions: Motion Sickness Additional Past Anesthesia/Blood Transfusion Reaction / Comment(s): anesthesia with wisdom teeth Past Psychological History: ADD/ADHD, Anxiety, Depression Smoking Status: Former smoker, Vaper Past Alcohol Use History: Occasional Past Drug Use History: Marijuana - Past Family History Mother Additional Family Medical History / Comment(s): ADHD, hip dysplasia. General Exam Limitations: no limitations General appearance: alert, in no apparent distress Eye exam: Present: normal appearance. Absent: scleral icterus, conjunctival i njection Respiratory exam: Present: normal lung sounds bilaterally. Absent: respiratory distress, chest wall tenderness, accessory muscle use Cardiovascular Exam: Present: regular rate GI/Abdominal exam: Present: soft, tenderness (Lower abdominal pain). Absent: distended Extremities exam: Present: normal inspection, normal capillary refill. Absent: tenderness, pedal edema Back exam: Present: normal inspection, full ROM. Absent: tenderness, CVA tenderness (R), CVA tenderness (L), rash noted Neurological exam: Present: alert, oriented X3 Psychiatric exam: Present: normal affect, normal mood Skin exam: Present: warm, dry, intact, normal color. Absent: cyanosis, diaphoretic Course Vital Signs 09/23/21 09/23/21 00:41 03:06 Temperature 98.5 F Pulse Rate 94 65 Respiratory 18 16 Rate Blood Pressure 118/74 124/78 O2 Sat by Pulse 100 96 Oximetry Medical Decision Making - Medical Decision Making 20-year-old female presents with complaints of intermittent pelvic pain for one week. She is due to start her period tomorrow. Abdomen is soft and minimally tender lower abdomen. She denies any dysuria or vaginal bleeding or vaginal discharge. Denies fevers. Patient did have a normal pelvic ultrasound 05/20/2021 for pelvic pain and menorrhagia that showed normal pelvic ultrasound, ovaries are within normal limits normal endometrium. There is no evidence of leukocytosis, hemoglobin and hematocrit are stable. Electrolytes are unremarkable. Lactic acid is negative. Urinalysis shows no sign of infection. Urine test is negative. Upon reexam, patient's abdomen is minimally tender. There are no masses felt. I suspect that this pain is premenstrual. She was directed to take Motrin and increase her fluid intake. I did write a prescription for the patient had an outpatient ultrasound and the results forwarded to Dr. Rayshawn Jensen her primary care doctor. She was directed to return to the emergency room with any new concerning symptoms. Patient is ag reeable to this plan of care. - Lab Data Result diagrams: 09/23/21 01:04 09/23/21 01:04 Lab Results 09/23/21 09/23/21 09/23/21 Range/Units 01:04 01:04 01:04 WBC 7.9 (4.0-11.0) k/uL RBC 4.51 (3.80-5.40) m/uL Hgb 13.1 (11.4-16.0) gm/dL Hct 40.7 (34.0-46.0) % MCV 90.1 (80.0-100.0) fL MCH 28.9 (25.0-35.0) pg MCHC 32.1 (31.0-37.0) g/dL RDW 12.8 (11.5-15.5) % Plt Count 265 (150-450) k/uL MPV 6.9 Neutrophils % 65 % Lymphocytes % 27 % Monocytes % 5 % Eosinophils % 1 % Basophils % 0 % Neutrophils # 5.1 (1.3-7.7) k/uL Lymphocytes # 2.1 (1.0-4.8) k/uL Monocytes # 0.4 (0-1.0) k/uL Eosinophils # 0.1 (0-0.7) k/uL Basophils # 0.0 (0-0.2) k/uL Sodium (137-145) mmol/L Potassium (3.5-5.1) mmol/L Chloride (98-107) mmol/L Carbon Dioxide (22-30) mmol/L Anion Gap mmol/L BUN (7-17) mg/dL Creatinine (0.52-1.04) mg/dL Est GFR (CKD-EPI)AfAm (>60 ml/min/1.73 sqM) Est GFR (CKD-EPI)NonAf (>60 ml/min/1.73 sqM) Glucose (74-99) mg/dL Plasma Lactic Acid [place] (0.7-2.0) mmol/L Calcium (8.4-10.2) mg/dL Total Bilirubin (0.2-1.3) mg/dL AST (14-36) U/L ALT (4-34) U/L Alkaline Phosphatase (38-126) U/L Total Protein (6.3-8.2) g/dL Albumin (3.5-5.0) g/dL Amylase (30-110) U/L Lipase (23-300) U/L Urine Color Yellow Urine Appearance Cloudy H (Clear) Urine pH 5.5 (5.0-8.0) Ur Specific [place] 1.020 (1.001-1.035) Urine Protein Negative (Negative) Urine Glucose (UA) Negative (Negative) Urine Ketones Negative (Negative) Urine Blood Negative (Negative) Urine Nitrite Negative (Negative) Urine Bilirubin Negative (Negative) Urine Urobilinogen <2.0 (<2.0) mg/dL Ur Leukocyte Esterase Moderate H (Negative) Urine RBC 1 (0-5) /hpf Urine WBC 5 (0-5) /hpf Ur Squamous Epith Cells 8 H (0-4) /hpf Urine Bacteria Occasional H (None) /hpf Hyaline Casts 1 (0-2) /lpf Urine Mucus Many H (None) /hpf Urine HCG, Qual Not Detected (Not Detectd) 09/23/21 09/23/21 Range/Units 01:04 01:04 WBC (4.0-11.0) k/uL RBC (3.80-5.40) m/uL Hgb (11.4-16.0) gm/dL Hct (34.0-46.0) % MCV (80.0-100.0) fL MCH (25.0-35.0) pg MCHC (31.0-37.0) g/dL RDW (11.5-15.5) % Plt Count (150-450) k/uL MPV Neutrophils % % Lymphocytes % % Monocytes % % Eosinophils % % Basophils % % Neutrophils # (1.3-7.7) k/uL Lymphocytes # (1.0-4.8) k/uL Monocytes # (0-1.0) k/uL Eosinophils # (0-0.7) k/uL Basophils # (0-0.2) k/uL Sodium 135 L (137-145) mmol/L Potassium 4.2 (3.5-5.1) mmol/L Chloride 103 (98-107) mmol/L Carbon Dioxide 23 (22-30) mmol/L Anion Gap 9 mmol/L BUN 10 (7-17) mg/dL Creatinine 0.70 (0.52-1.04) mg/dL Est GFR (CKD-EPI)AfAm >90 (>60 ml/min/1.73 sqM) Est GFR (CKD-EPI)NonAf >90 (>60 ml/min/1.73 sqM) Glucose 79 (74-99) mg/dL Plasma Lactic Acid [place] 0.6 L (0.7-2.0) mmol/L Calcium 9.2 (8.4-10.2) mg/dL Total Bilirubin 0.6 (0.2-1.3) mg/dL AST 29 (14-36) U/L ALT 12 (4-34) U/L Alkaline Phosphatase 59 (38-126) U/L Total Protein 7.8 (6.3-8.2) g/dL Albumin 4.8 (3.5-5.0) g/dL Amylase 37 (30-110) U/L Lipase 67 (23-300) U/L Urine Color Urine Appearance (Clear) Urine pH (5.0-8.0) Ur Specific [place] (1.001-1.035) Urine Protein (Negative) Urine Glucose (UA) (Negative) Urine Ketones (Negative) Urine Blood (Negative) Urine Nitrite (Negative) Urine Bilirubin (Negative) Urine Urobilinogen (<2.0) mg/dL Ur Leukocyte Esterase (Negative) Urine RBC (0-5) /hpf Urine WBC (0-5) /hpf Ur Squamous Epith Cells (0-4) /hpf Urine Bacteria (None) /hpf Hyaline Casts (0-2) /lpf Urine Mucus (None) /hpf Urine HCG, Qual (Not Detectd) Disposition Clinical Impression: Pelvic pain Disposition: HOME SELF-CARE Condition: Good Instructions (If sedation given, give patient instructions): Pelvic Pain in Women (ED) Additional Instructions: Continue to take Tylenol and Motrin as needed for pain. Call to schedule the ultrasound prescribed for evaluation of ovaries and uterus. The results should be sent to your primary care doctor so call and make an appointment next week. Return to the emergency room with any new or concerning symptoms. Is patient prescribed a controlled substance at d/c from ED?: No Referrals: Rayshawn Jensen DO [Primary Care Provider] - 1-2 days Time of Disposition: 02:55
[2021-09-23 01:41] LABS: Basophils % (A) 0 %; Eosinophils # (A) 0.1 k/uL (0-0.7); Eosinophils % (A) 1 %; HCT 40.7 % (34.0-46.0); HGB 13.1 gm/dL (11.4-16.0); Lymphocytes # (A) 2.1 k/uL (1.0-4.8); Lymphocytes % (A) 27 %; MCH 28.9 pg (25.0-35.0); MCHC 32.1 g/dL (31.0-37.0); MCV 90.1 fL (80.0-100.0); Mean Platelet Volume 6.9; Monocytes # (A) 0.4 k/uL (0-1.0); Monocytes % (A) 5 %; Neutrophils # (A) 5.1 k/uL (1.3-7.7); Neutrophils % (A) 65 %; Platelet Count 265 k/uL (150-450); RBC 4.51 m/uL (3.80-5.40); RDW 12.8 % (11.5-15.5); WBC 7.9 k/uL (4.0-11.0)
[2021-09-23 01:56] LABS: Appearance,Urine Cloudy (Clear); Bacteria,Urine Occasional /hpf; Bilirubin,Urine Negative (Negative); Blood,Urine Negative (Negative); Color,Urine Yellow; Glucose,Urine (UA) Negative (Negative); Hyaline Casts,Urine 1 /lpf (0-2); Ketones,Urine Negative (Negative); Leukocyte Esterase,Urine Moderate (Negative); Mucus,Urine Many /hpf; Nitrite,Urine Negative (Negative); PH, Urine 5.5 (5.0-8.0); Protein,Urine Negative (Negative); RBC,Urine 1 /hpf (0-5); Squamous Epithelial Cell,Urine 8 /hpf (0-4); Urobilinogen,Urine <2.0 mg/dL (<2.0); WBC,Urine 5 /hpf (0-5)
[2021-09-23 02:12] LABS: ALT 12 U/L (4-34); AST 29 U/L (14-36); African American GFR (CKD) >90 (>60 ml/min/1.73 sqM); Albumin 4.8 g/dL (3.5-5.0); Alkaline Phosphatase 59 U/L (38-126); Amylase 37 U/L (30-110); Anion Gap 9 mmol/L; Blood Urea Nitrogen 10 mg/dL (7-17); Calcium 9.2 mg/dL (8.4-10.2); Carbon Dioxide 23 mmol/L (22-30); Chloride 103 mmol/L (98-107); Glucose 79 mg/dL (74-99); Lipase 67 U/L (23-300); Non-African American GFR(CKD) >90 (>60 ml/min/1.73 sqM); Potassium 4.2 mmol/L (3.5-5.1); Sodium 135 mmol/L (137-145); Total Bilirubin 0.6 mg/dL (0.2-1.3); Total Protein 7.8 g/dL (6.3-8.2)
[2021-09-23 03:07] VITALS: BP 124/78; PULSE 65; RESP 16
== END 2021-09-23 03:06 | disposition home or self-care (01) ==
LOC: EC 00:38
DX: R10.2 Pelvic and perineal pain (principal); K21.9 Gastro-esophageal reflux disease without esophagitis; J45.909 Unspecified asthma, uncomplicated; F41.9 Anxiety disorder, unspecified; F32.A Depression, unspecified; F90.9 Attention-deficit hyperactivity disorder, unspecified type; F12.90 Cannabis use, unspecified, uncomplicated; Z87.891 Personal history of nicotine dependence; Z79.899 Other long term (current) drug therapy
CPT/HCPCS: 99284; 96374; 96361; 36415; 80053; 82150; 83605; 83690; 85025; 81001; 81025; J1885

== ENCOUNTER 2022-05-15 14:42 | Outpatient (CLI) | payer OTHER ==
[2022-05-15 15:48] VITALS: BP 117/67; PULSE 98; RESP 18; TEMP 96.8
--- NOTE | 2022-05-15 18:33 | P.MSEPDOC ---
Presenting Problems - Arrival Data Date of Arrival on Unit: 05/15/22 Time of Arrival on Unit: 14:42 Mode of Transport: Ambulatory - Complaint OB-Reason for Admission/Chief Complaint: Pain Comment: pt presents to triage for lower abd pain and groin pain, rates 4/10 now but stated it was 10/10 earlier Medical History - Information : 1 Para: 0 Term: 0 : 0 Abortions: Spontaneous or Elective: 0 Number of Living Children: 0 - Gestational Age Gestational Age by RYAN (wks/days): 23 Weeks and 4 Days - History Complications: Smoker Comment: pt jose Review of Systems - Review of Systems Constitutional: No problems Breast: No problems ENT: No problems Cardiovascular: No problems Respiratory: No problems Gastrointestinal: No problems Genitourinary: No problems Musculoskeletal: No problems Neurological: No problems Skin: No problems Vital Signs - Temperature Temperature: 96.8 F Temperature Source: Temporal Artery Scan - Pulse Right Brachial Pulse Rate: 98 Pulse Assessment Method: Automatic Cuff - Respirations Respiratory Rate: 18 Oxygen Delivery Method: Room Air O2 Sat by Pulse Oximetry: 100 - Blood Pressure Right Arm Blood Pressure: 117/67 Blood Pressure Mean: 83 Blood Pressure Source: Automatic Cuff Medical Screen Scoring - Cervical Exam Dilation (cm): 0 - Assessment - Baby A Baseline FHR: 150 Heart Rate - NICHD Category: Category I (Normal) Physician Notification - Physician Notified Physician Notified Date: 05/15/22 Physician Notified Time: 15:00 Physician: Pily Alvarado Order Received: Yes - Notification Comment Comment: FHT's 150's for 23 weeks GA, cervical exam closed/thick/high, pt given instructions to use support belt at home, no s/s of UTI per pt, discharged home with instructions to follow up with Dr. Nolan at next scheduled appt Maternal Triage Index - Maternal Triage Index Presenting for scheduled procedure w/no complaint: No - Stat/Priority 1 Stat Priority 1: No - Urgent/Priority 2 Urgent Priority 2: No - Prompt/Priority 3 Prompt Priority 3: No - Non-Urgent/Priority 4 Non-Urgent Priority 4: Yes Criteria Met for Priority 4: pt presents to triage for lower abd pain and groin pain, rates 4/10 now but stated it was 10/10 earlier Disposition - Disposition OB Disposition: Triage, Discharge to home, Written follow up instructions reviewed Discharge Date: 05/15/22 Discharge Time: 15:25 I agree with the RN Medical Screening Exam: Yes Case reviewed; plan agreed upon as documented in EMR&OBIX.: Yes Diagnosis: RELATED CONDITIONS, UNSPECIFIED, SECOND TRIMESTER
== END 2022-05-15 15:25 | disposition home or self-care (01) ==
LOC: FBPOP 14:42
PROVIDERS: ATTEND Obstetrics & Gynecology
DX: O26.892 Other specified pregnancy related conditions, second trimester (principal); Z3A.23 23 weeks gestation of pregnancy
CPT/HCPCS: 99213

== ENCOUNTER 2022-06-30 10:18 | Outpatient (CLI) | payer OTHER ==
[2022-06-30] MEDS ORDERED: LACTATED RINGERS 1,000 ML IV SCH (11:15)
[2022-06-30] MEDS ORDERED: FAMOTIDINE 20 MG/2 ML VIAL IV SCH (11:30)
[2022-06-30] MEDS ORDERED: ONDANSETRON 4 MG/2 ML VIAL IVP STA (11:57)
[2022-06-30 14:08] VITALS: BP 127/83; PULSE 121; RESP 16; TEMP 97.5
--- NOTE | 2022-07-21 21:00 | P.MSEPDOC ---
Presenting Problems - Arrival Data Date of Arrival on Unit: 06/30/22 Time of Arrival on Unit: 10:18 Mode of Transport: Ambulatory - Complaint OB-Reason for Admission/Chief Complaint: Acute Nausea/Vomiting, Pain Comment: upper abd pain, rates 9 on scale of 0-10 Medical History - Information : 1 Para: 0 Term: 0 : 0 Abortions: Spontaneous or Elective: 0 Number of Living Children: 0 - Gestational Age Gestational Age by RYAN (wks/days): 30 Weeks and 2 Days Review of Systems - Review of Systems Constitutional: No problems Breast: No problems ENT: No problems Cardiovascular: No problems Respiratory: No problems Gastrointestinal: No problems Genitourinary: No problems Musculoskeletal: No problems Neurological: No problems Skin: No problems Vital Signs - Temperature Temperature: 97.5 F Temperature Source: Temporal Artery Scan - Pulse Right Sitting Pulse Rate: 121 Pulse Assessment Method: Automatic Cuff - Respirations Respiratory Rate: 16 Oxygen Delivery Method: Room Air - Blood Pressure Right Arm Blood Pressure: 127/83 Blood Pressure Mean: 97 Blood Pressure Source: Automatic Cuff Medical Screen Scoring - Cervical Exam Dilation (cm): 0 - Assessment - Baby A Baseline FHR: 145 Heart Rate - NICHD Category: Category I (Normal) NST: Reactive Physician Notification - Physician Notified Physician Notified Date: 06/30/22 Physician Notified Time: 13:43 Physician: Pily Alvarado Order Received: Yes (D/C home) Maternal Triage Index - Non-Urgent/Priority 4 Non-Urgent Priority 4: Yes Criteria Met for Priority 4: upper abd pain, nausea and vomiting, few contractions on monitor, reactive nst Disposition - Disposition OB Disposition: Discharge to home, Written follow up instructions reviewed Discharge Date: 06/30/22 Discharge Time: 13:50 I agree with the RN Medical Screening Exam: Yes Case reviewed; plan agreed upon as documented in EMR&OBIX.: Yes Diagnosis: PAIN, UNSPECIFIED
== END 2022-06-30 13:50 | disposition home or self-care (01) ==
LOC: FBPOP 10:18
PROVIDERS: ATTEND Obstetrics & Gynecology
DX: O26.893 Other specified pregnancy related conditions, third trimester (principal); Z3A.30 30 weeks gestation of pregnancy; R52 Pain, unspecified; F17.200 Nicotine dependence, unspecified, uncomplicated; Z91.030 Bee allergy status; Z91.048 Other nonmedicinal substance allergy status
CPT/HCPCS: 59025; 96361; 96374; 96375; G0463; J2405; 99214

== ENCOUNTER 2022-08-01 01:40 | Outpatient (CLI) | payer OTHER ==
[2022-08-01 03:31] VITALS: BP 119/70; PULSE 97; RESP 18; TEMP 97.7
--- NOTE | 2022-08-01 07:31 | P.MSEPDOC ---
Presenting Problems - Arrival Data Date of Arrival on Unit: 08/01/22 Time of Arrival on Unit: 01:40 Mode of Transport: Ambulatory - Complaint OB-Reason for Admission/Chief Complaint: Possible Onset of Labor Comment: patient presents to triage for complaints of lower abdominal pain that started at 2300. Medical History - Information : 1 Para: 0 - Gestational Age Gestational Age by RYAN (wks/days): 34 Weeks and 5 Days Review of Systems - Review of Systems Constitutional: No problems Breast: No problems ENT: No problems Cardiovascular: No problems Respiratory: No problems Gastrointestinal: No problems Genitourinary: No problems Musculoskeletal: No problems Neurological: No problems Skin: No problems Vital Signs - Temperature Temperature: 97.7 F Temperature Source: Temporal Artery Scan - Pulse Pulse Oximetery Pulse Rate: 97 Pulse Assessment Method: Pulse Oximetry - Respirations Respiratory Rate: 18 Oxygen Delivery Method: Room Air O2 Sat by Pulse Oximetry: 98 - Blood Pressure Right Arm Blood Pressure: 119/70 Blood Pressure Mean: 86 Blood Pressure Source: Automatic Cuff Medical Screen Scoring - Cervical Exam Membranes: Intact - Uterine Contractions Intensity: Absent Resting: Soft to palpation - Assessment - Baby A Baseline FHR: 145 Heart Rate - NICHD Category: Category I (Normal) NST: Reactive Physician Notification - Physician Notified Physician Notified Date: 08/01/22 Physician Notified Time: 03:04 Physician: Jaxon Josue Order Received: Yes (discharge home) Maternal Triage Index - Maternal Triage Index Presenting for scheduled procedure w/no complaint: No - Stat/Priority 1 Stat Priority 1: No - Urgent/Priority 2 Urgent Priority 2: No - Prompt/Priority 3 Prompt Priority 3: Yes Criteria Met for Priority 3: Patient presents to triage for lower abdominal pain. No cervical change after 1 hour. Patients cervix is closed thick and high. Disposition - Disposition OB Disposition: Discharge to home I agree with the RN Medical Screening Exam: Yes Case reviewed; plan agreed upon as documented in EMR&OBIX.: Yes Diagnosis: FALSE LABOR BEFORE 37 COMPLETED WEEKS OF GEST, THIRD TRI
== END 2022-08-01 03:31 ==
LOC: FBPOP 01:40
PROVIDERS: ATTEND Obstetrics & Gynecology
DX: O47.03 False labor before 37 completed weeks of gestation, third trimester (principal); Z3A.34 34 weeks gestation of pregnancy; O99.333 Smoking (tobacco) complicating pregnancy, third trimester; Z91.030 Bee allergy status; Z91.048 Other nonmedicinal substance allergy status
CPT/HCPCS: 59025; G0463; 99213

== ENCOUNTER 2022-08-09 01:55 | Outpatient (CLI) | payer OTHER ==
[2022-08-09 03:08] VITALS: BP 138/83; PULSE 88; RESP 16; TEMP 97.8
--- NOTE | 2022-08-25 02:07 | P.MSEPDOC ---
Presenting Problems - Arrival Data Date of Arrival on Unit: 08/09/22 Time of Arrival on Unit: 01:55 Mode of Transport: Ambulatory - Complaint OB-Reason for Admission/Chief Complaint: Possible Onset of Labor Comment: Patient arrived to triage with intermittent lower abdominal pain that. started today. Patient states that pain comes and goes pain earlier in the day was a. 10/10 and is currently a 5/10 intermittently. Patient denies any sexual activity within. 24 hours, denies leaking of fluid or bleeding, patient is feeling baby move. Abdomen on. exam for RN is soft to palpation. Patient denies any complications with . Medical History - Information : 1 Para: 0 Term: 0 : 0 Abortions: Spontaneous or Elective: 0 Number of Living Children: 0 - Gestational Age Gestational Age by RYAN (wks/days): 35 Weeks and 6 Days Review of Systems - Review of Systems Constitutional: No problems Breast: No problems ENT: No problems Cardiovascular: No problems Respiratory: No problems Gastrointestinal: No problems Genitourinary: No problems Musculoskeletal: No problems Neurological: No problems Skin: No problems Vital Signs - Temperature Temperature: 97.8 F Temperature Source: Temporal Artery Scan - Pulse Pulse Oximetery Pulse Rate: 88 Pulse Assessment Method: Automatic Cuff - Respirations Respiratory Rate: 16 Oxygen Delivery Method: Room Air O2 Sat by Pulse Oximetry: 100 - Blood Pressure Right Arm Blood Pressure: 138/83 Blood Pressure Mean: 101 Blood Pressure Source: Automatic Cuff Medical Screen Scoring - Cervical Exam Dilation (cm): 1 Effacement (%): 60 Station: -2 - Uterine Contractions Resting: Soft to palpation - Assessment - Baby A Baseline FHR: 125 Heart Rate - NICHD Category: Category I (Normal) NST: Reactive Physician Notification - Physician Notified Physician Notified Date: 08/09/22 Physician Notified Time: 02:37 Physician: Nedra Nolan New Order Received: Yes - Notification Comment Comment: Dr. Nolan aware of patients c/o lower abdominal pain, cervical check, FHR ,UC,. vitals, Pain. Dr. Nolan is discharging patient with orders to hydrate. Maternal Triage Index - Prompt/Priority 3 Prompt Priority 3: Yes Criteria Met for Priority 3: Patient arrived to triage with intermittent lower abdominal pain that. started today. Patient states that pain comes and goes pain earlier in the day was a. 10/10 and is currently a 5/10 intermittently. Patient denies any sexual activity within. 24 hours, denies leaking of fluid or bleeding, patient is feeling baby move. Abdomen on. exam for RN is soft to palpation. Patient denies any complications with . Disposition - Disposition OB Disposition: Discharge to home Discharge Date: 08/09/22 Discharge Time: 02:43 I agree with the RN Medical Screening Exam: Yes Case reviewed; plan agreed upon as documented in EMR&OBIX.: Yes Diagnosis: PRIMARY INADEQUATE CONTRACTIONS
== END 2022-08-09 02:43 | disposition home or self-care (01) ==
LOC: FBPOP 01:55
PROVIDERS: ATTEND Obstetrics & Gynecology
DX: O62.0 Primary inadequate contractions (principal); Z3A.35 35 weeks gestation of pregnancy; Z91.030 Bee allergy status; O99.333 Smoking (tobacco) complicating pregnancy, third trimester; Z91.048 Other nonmedicinal substance allergy status
CPT/HCPCS: 59025; G0463; 99213

== ENCOUNTER 2022-08-11 13:57 | Inpatient (IN) | payer OTHER ==
[2022-08-11] MEDS ORDERED: LIDOCAINE 0.5% (PF) 5 MG/ML (50 ML SDV) SQ PRN (14:43)
[2022-08-11] MEDS ORDERED: TERBUTALINE 1 MG/ML VIAL SQ PRN (14:43)
[2022-08-11] MEDS ORDERED: OXYTOCIN 30 UNITS/500 ML NS 30 UNIT in SALINE 1 500ML.BAG IV SCH ×2 (14:45→23:45)
[2022-08-11] MEDS: LACTATED RINGERS 1,000 ML IV SCH ×2 (15:14→19:03)
[2022-08-11 15:23] LABS: Basophils % (A) 0 %; Eosinophils # (A) 0.1 k/uL (0-0.7); Eosinophils % (A) 1 %; HCT 41.2 % (34.0-46.0); HGB 13.6 gm/dL (11.4-16.0); Lymphocytes # (A) 1.3 k/uL (1.0-4.8); Lymphocytes % (A) 13 %; MCH 28.5 pg (25.0-35.0); MCV 86.2 fL (80.0-100.0); Mean Platelet Volume 8.2; Monocytes # (A) 0.6 k/uL (0-1.0); Monocytes % (A) 6 %; Neutrophils # (A) 7.8 k/uL (1.3-7.7); Neutrophils % (A) 78 %; Platelet Count 213 k/uL (150-450); RBC 4.78 m/uL (3.80-5.40)
[2022-08-11 15:43] LABS: ALT 13 U/L (4-34); AST 23 U/L (14-36); African American GFR (CKD) >90 (>60 ml/min/1.73 sqM); Blood Urea Nitrogen 4 mg/dL (7-17); LDH 506 U/L (313-618); Non-African American GFR(CKD) >90 (>60 ml/min/1.73 sqM); Uric Acid 4.8 mg/dL (3.7-7.4)
[2022-08-11] MEDS ORDERED: AMPICILLIN 2,000 MG in SODIUM CHLORIDE 0.9% 100 ML IVPB STA (18:02)
[2022-08-11] MEDS ORDERED: BUTORPHANOL 1 MG/ML 1 ML VIAL IV PRN (18:11)
--- NOTE | 2022-08-11 18:22 | P.HPOB ---
History of Present Illness H&P Date: 08/11/22 Chief Complaint: Leaking fluid. This patient is a 21-year-old 1 para 0 female estimated date of confinement 09/07/2022 estimated gestational age 36 and one sevenths weeks who presents to labor and delivery with complaints of gush of fluid that occurred earlier today. Evaluation here in labor and delivery shows her to have gross rupture membranes with a positive amnio sure. care is per Dr. 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 Patient however was referred to maternal- medicine and ultrasound was normal. Patient's also had swelling over the last several weeks with a normal blood pressure. Review of Systems Genitourinary: Reports Menstruation: Reports amenorrhea Past Medical History Past Medical History: Asthma, GERD/Reflux Additional Past Medical History / Comment(s): Hx kidney infections. "Stomach issues." Hx "chest pain and suspected Covid 07/12/21." History of Any Multi-Drug Resistant Organisms: None Reported Past Surgical History: No Surgical Hx Reported, Cholecystectomy Additional Past Surgical History / Comment(s): Pilonidal cyst removed. [place] teeth extracted. Past Anesthesia/Blood Transfusion Reactions: Motion Sickness Additional Past Anesthesia/Blood Transfusion Reaction / Comment(s): anesthesia with wisdom teeth Past Psychological History: ADD/ADHD, Anxiety, Depression Additional Psychological History / Comment(s): ADHD. Smoking Status: Never smoker Past Alcohol Use History: Occasional Additional Past Alcohol Use History / Comment(s): Smoked from age 14 to 06/15, 1/2ppd, now vapes. Past Drug Use History: Marijuana Additional Drug Use History / Comment(s): Not during - Past Family History Mother Additional Family Medical History / Comment(s): ADHD, hip dysplasia. Medications and Allergies Home Medications Medication Instructions Recorded Confirmed Type Omeprazole [PriLOSEC] 20 mg PO DAILY PRN 09/09/20 08/11/22 History Albuterol Inhaler [Ventolin Hfa 1 puff INHALATION DIRECTED PRN 08/01/21 08/11/22 History Inhaler] EPINEPHrine (Auto Inject) [Epipen] 0.3 mg IM ONCE PRN 08/01/21 08/11/22 History Allergies Allergy/AdvReac Type Severity Reaction Status Date / Time bee venom protein (honey bee) Allergy Swelling Verified 08/11/22 14:18 tide Allergy Rash/Hives Uncoded 08/11/22 14:18 Exam Vital Signs Temp Pulse Resp BP Pulse Ox 08/11/22 15:25 98.3 F 104 H 16 136/83 96 Intake and Output 08/11/22 08/11/22 08/11/22 06:59 14:59 22:59 Other: Weight 102.512 kg 102.512 kg - OBG Physical Exam Abdomen: bowel sounds normal, no diffuse tenderness, no bruit present, no guarding noted, no hepatomegaly, no splenomegaly, no mass Vulva: both: normal Vagina: normal moisture, no discharge Cervix: no lesion (Cervix is 3-4 cm 50% effaced), no discharge Uterus: enlarged Results blood work shows she is O positive, rubella immune, RPR is nonreactive, hepatitis B is negative, HIV is nonreactive, toxoplasmosis was negative. Level III ultrasound is normal. Group B strep was negative, most recent ultrasound in the office showed vertex presentation 5 lbs. 2 oz. the 25th to the 50th percentile. Result Diagrams: 08/11/22 15:08 08/11/22 14:44 Abnormal Lab Results - Last 24 Hours (Table) 08/11/22 08/11/22 Range/Units 14:44 15:08 Neutrophils # 7.8 H (1.3-7.7) k/uL BUN 4 L (7-17) mg/dL Creatinine 0.38 L (0.52-1.04) mg/dL Assessment and Plan Assessment: This is a 21-year-old 1 para 0 female 36 and one sevenths weeks gestation with premature rupture membranes. Patient has had a lot of swelling of preeclampsia labs are normal on her blood pressures have been fine. Plan is antibiotic prophylaxis and Pitocin augmentation of labor. We anticipate vaginal delivery. I did have a long discussion with the patient and her family the fact that she is and the baby may need to go to special care nursery. All the patient's questions are answered and a written consent is obtained. (1) 36 weeks gestation of Current Visit: Yes Status: Acute Code(s): Z3A.36 - 36 WEEKS GESTATION OF SNOMED Code(s): 63190268 (2) premature rupture of membranes Current Visit: Yes Status: Acute Code(s): O42.919 - PRETRM JUAN ROM, UNSP TIME BETW RUPT AND ONST LABR, UNSP TRI SNOMED Code(s): 155359583
[2022-08-11] MEDS ORDERED: fentaNYL (PF) 50 MCG/ML 5 ML AMP ONE (19:07)
[2022-08-11] MEDS ORDERED: ROPIVACAINE 5 MG/ML 20 ML AMPULE ONE (19:07)
[2022-08-11] MEDS ORDERED: SODIUM CHLORIDE 0.9% 100 ML BAG ONE (19:07)
[2022-08-11] MEDS ORDERED: AMPICILLIN 1,000 MG in SODIUM CHLORIDE 0.9% 50 ML IVPB SCH (22:15)
[2022-08-11] MEDS ORDERED: ZOLPIDEM 5 MG TAB PO PRN (23:45)
[2022-08-11] MEDS ORDERED: SIMETHICONE 80 MG CHEWABLE PO PRN (23:45)
[2022-08-11] MEDS ORDERED: LANOLIN CREAM 5 GM TUBE TOPICAL PRN (23:45)
[2022-08-11] MEDS ORDERED: diphenhydrAMINE 25 MG CAP PO PRN (23:45)
[2022-08-11] MEDS ORDERED: HYDROCORTISONE 2.5% RECTAL CREAM 30 GM TUBE RECTAL PRN (23:45)
[2022-08-11] MEDS ORDERED: BENZOCAINE/MENTHOL SPRAY 1 GM/SPRAY AEROSOL TOPICAL PRN (23:45)
[2022-08-11] MEDS ORDERED: diphenhydrAMINE 50 MG/ML 1 ML VIAL IVP PRN (23:45)
[2022-08-11] MEDS ORDERED: bisacodyL 10 MG SUPP RECTAL PRN (23:45)
--- NOTE | 2022-08-11 23:50 | P.PROBDLV ---
Vaginal Delivery Note - . Vaginal Delivery Note: Normal spontaneous vaginal delivery viable female infant Apgars 8 and 9 delivery time was 2329 hrs. Please see dictated H&P for intimate details of this patient's admission. In brief summary this is a 21-year-old 1 para 0 female 36 and one sevenths weeks gestation who is admitted to labor and delivery with complaints of gush of fluid at approximately noon today. Patient admitted to labor and delivery she has Pitocin augmentation of labor. Initially about 2 cm dilated. Labor progresses she does get 1 dose of Stadol and then an epidural for pain control. Patient's labor progresses and she gets to complete. Patient pushes the head to the perineum. Patient does have some bradycardia at this time to the 70s and 80s and therefore a midline episiotomy is made and we have controlled delivery of the 's head at this time. Mouth and nares are bulb suctioned. There is a nuchal cord which is easily reduced. With gentle downward traction we then have delivery the anterior and posterior shoulder and the rest of this 's body. This is a vigorous viable female Apgars are 8 and 9 delivery time is 2329 hrs. has spontaneous respirations and good cry and grossly appears normal. After delivery of the is late on the mother's abdomen and the cord was cut and clamped and cut and is handed off to the nurses in attendance. Placenta at this time is delivered spontaneously intact. Inspection of perineum shows second-degree laceration which was repaired with 3-0 Vicryl usual fashion excellent reapproximation is noted. All counts are correct 3. There are no complications. Infant is taken special care nursery due to prematurity and for observation. Mother stable in her birthing suite.
[2022-08-12] MEDS: IBUPROFEN 600 MG TAB PO PRN ×3 (00:04→19:18)
[2022-08-12] MEDS: ACETAMINOPHEN TAB 325 MG TAB PO PRN ×3 (03:13→23:44)
[2022-08-12] MEDS: LACTATED RINGERS 1,000 ML IV SCH (03:57)
--- NOTE | 2022-08-12 06:26 | P.PNOBGVD ---
Subjective - Subjective Patient reports: Reports appetite normal, Reports voiding normally, Reports pain well controlled, Reports ambulating normally : in NICU Objective - Latest Vital Signs Latest vital signs: Vital Signs Temp Pulse Resp BP Pulse Ox 08/12/22 04:00 98.4 F 96 16 130/87 97 08/12/22 01:40 97.9 F 103 H 16 140/78 97 08/12/22 01:10 97.2 F L 104 H 16 145/85 08/12/22 00:40 97.3 F L 104 H 16 134/85 98 08/12/22 00:25 93 16 141/90 08/12/22 00:10 93 16 140/90 08/11/22 23:55 112 H 16 138/78 08/11/22 23:40 16 97 08/11/22 15:25 98.3 F 104 H 16 136/83 96 Intake and Output 08/11/22 08/11/22 08/12/22 14:59 22:59 06:59 Intake Total 14.6 480 Output Total 479 Balance 14.6 1 Intake: Intake, IV Titration 14.6 Amount Oxytocin 30 Units/500 ml 14.6 Ns 30 unit In Saline 1 500ml.bag @ Per Protocol IV .Q0M CARMINE Rx#:[id number] Oral 480 Output: Estimated Blood Loss 300 Output, Quantitative 179 Blood Loss Other: # Voids 2 Weight 102.512 kg 102.512 kg - Exam Lungs: bilateral: normal Chest: Normal S1, Normal S2 Extremities: Present: normal Abdomen: Present: normal appearance, soft Uterus: Present: normal, firm - Labs Labs: Abnormal Lab Results - Last 24 Hours (Table) 08/11/22 08/11/22 Range/Units 14:44 15:08 Neutrophils # 7.8 H (1.3-7.7) k/uL BUN 4 L (7-17) mg/dL Creatinine 0.38 L (0.52-1.04) mg/dL Assessment and Plan Assessment: Post day #1. Patient is resting without new complaints. Vital signs are stable and she is afebrile. Baby is in special care nursery due to respiratory issues. Patient's uterus is firm nontender she's having normal lochia. I impression is a normal course. Plan is to check CBC, encourage ambulation, and continue routine care. (1) 36 weeks gestation of Current Visit: Yes Status: Acute Code(s): Z3A.36 - 36 WEEKS GESTATION OF SNOMED Code(s): 96979254 (2) premature rupture of membranes Current Visit: Yes Status: Acute Code(s): O42.919 - PRETRM JUAN ROM, UNSP TIME BETW RUPT AND ONST LABR, UNSP TRI SNOMED Code(s): 230124274
[2022-08-12 07:30] LABS: Basophils % (A) 0 %; Eosinophils % (A) 0 %; HCT 35.7 % (34.0-46.0); HGB 11.8 gm/dL (11.4-16.0); Lymphocytes # (A) 1.2 k/uL (1.0-4.8); Lymphocytes % (A) 10 %; MCH 28.7 pg (25.0-35.0); MCHC 33.1 g/dL (31.0-37.0); MCV 86.7 fL (80.0-100.0); Mean Platelet Volume 8.7; Monocytes # (A) 0.9 k/uL (0-1.0); Monocytes % (A) 7 %; Neutrophils # (A) 10.3 k/uL (1.3-7.7); Neutrophils % (A) 81 %; Platelet Count 188 k/uL (150-450); RBC 4.12 m/uL (3.80-5.40); RDW 12.9 % (11.5-15.5); WBC 12.7 k/uL (3.8-10.6)
[2022-08-12] MEDS: SENNOSIDES-DOCUSATE SODIUM 1 EACH TAB PO SCH ×2 (07:56→19:19)
[2022-08-12 23:46] VITALS: BP 130/88; PULSE 75; RESP 18; TEMP 98.6
--- NOTE | 2022-08-16 10:48 | P.DS ---
Providers Date of admission: 08/11/22 14:53 Expected date of discharge: 08/13/22 Attending physician: Nedra Nolan Primary care physician: Stated None Hospital Course: Please see dictated history and physical and delivery note for details of patient's admission. I was called by nursing staff to discharge the patient since her baby was being transferred to [facility]. Nurse stated the patient has been comfortable with pain and denies any needs other than discharge. Discharge order was given and routine instructions were given. She is instructed to follow-up with Dr. Nolan in the office in 6 weeks or sooner if any concerns. Procedures: Spontaneous vaginal delivery of a viable female infant on 08/11/2022 Patient Condition at Discharge: Stable Plan - Discharge Summary New Discharge Prescriptions: No Action Omeprazole [PriLOSEC] 20 mg PO DAILY PRN PRN Reason: Acid Reflux Albuterol Inhaler [Ventolin Hfa Inhaler] 1 puff INHALATION DIRECTED PRN PRN Reason: Cough EPINEPHrine (Auto Inject) [Epipen] 0.3 mg IM ONCE PRN PRN Reason: Anaphylaxis Discharge Medication List Omeprazole [PriLOSEC] 20 mg PO DAILY PRN 09/09/20 [History] Albuterol Inhaler [Ventolin Hfa Inhaler] 1 puff INHALATION DIRECTED PRN 08/01/21 [History] EPINEPHrine (Auto Inject) [Epipen] 0.3 mg IM ONCE PRN 08/01/21 [History] Follow up Appointment(s)/Referral(s): Nedra Nolan DO [Doctor of Osteopathic Medicine] - 09/23/22 3:45 pm Discharge Disposition: HOME SELF-CARE
== END 2022-08-13 00:52 | disposition home or self-care (01) | DRG 807 ==
LOC: FBPOP 13:57 → 4FBP 14:53
PROVIDERS: ADMIT Obstetrics & Gynecology; ATTEND Obstetrics & Gynecology
PROC: 10907ZC Drainage of Amniotic Fluid, Therapeutic from Products of Conception, Via Natural or Artificial Opening (ICD-10-PCS; principal; 2022-08-11)
PROC: 0W8NXZZ Division of Female Perineum, External Approach (ICD-10-PCS; principal; 2022-08-11)
PROC: 10E0XZZ Delivery of Products of Conception, External Approach (ICD-10-PCS; principal; 2022-08-11)
PROC: 3E033VJ Introduction of Other Hormone into Peripheral Vein, Percutaneous Approach (ICD-10-PCS; principal; 2022-08-11)
PROC: 4A0HXCZ Measurement of Products of Conception, Cardiac Rate, External Approach (ICD-10-PCS; principal; 2022-08-11)
DX: O42.913 Preterm premature rupture of membranes, unspecified as to length of time between rupture and onset of labor, third trimester (principal); Z37.0 Single live birth; O76 Abnormality in fetal heart rate and rhythm complicating labor and delivery; O69.81X0 Labor and delivery complicated by cord around neck, without compression, not applicable or unspecified; F32.A Depression, unspecified; F41.9 Anxiety disorder, unspecified; F90.9 Attention-deficit hyperactivity disorder, unspecified type; J45.909 Unspecified asthma, uncomplicated; O99.344 Other mental disorders complicating childbirth; O99.52 Diseases of the respiratory system complicating childbirth; Z3A.36 36 weeks gestation of pregnancy; O35.9XX0 Maternal care for (suspected) fetal abnormality and damage, unspecified, not applicable or unspecified; O99.334 Smoking (tobacco) complicating childbirth; F17.290 Nicotine dependence, other tobacco product, uncomplicated; Z91.030 Bee allergy status; Z91.048 Other nonmedicinal substance allergy status; Z90.49 Acquired absence of other specified parts of digestive tract; Z86.16 Personal history of COVID-19
CPT/HCPCS: 59025; 82565; 83615; 84112; 84450; 84460; 84520; 84550; 85025; 86850; 86900; 86901; 99213

== ENCOUNTER → 2022-12-08 | Outpatient (CLI) | payer OTHER | END | disposition home or self-care (01) | LOC: LABWHC1 12:45 | PROVIDERS: ATTEND Obstetrics & Gynecology | DX: N94.89 Other specified conditions associated with female genital organs and menstrual cycle (principal) | CPT/HCPCS: 36415; 84702 ==

== ENCOUNTER 2023-07-07 16:43 | Emergency (ER) | payer OTHER ==
[2023-07-07 17:05] VITALS: RESP 18; TEMP 98.5
--- NOTE | 2023-07-07 17:05 | ED ---
General Adult HPI - General Source: patient, RN notes reviewed Mode of arrival: ambulatory Limitations: no limitations <Fior Wray - Last Filed: 07/07/23 17:03> <Ernesto Mckay - Last Filed: 07/07/23 20:40> - General Stated complaint: Near Syncope Time Seen by Provider: 07/07/23 17:03 - History of Present Illness Initial comments: 22-year-old female presents emergency department chief complaint of flank pain bilaterally. She states that today while she was at work she had pain in bilateral flanks which radiates to her groin. She does admit to dysuria recently and states that she picked up medications from the [employer] to "numb her bladder"and she has been taking this. She states that when the pain came on she got hot and sweaty and felt that she was going to pass out. She did not lose consciousness. (Fior Wray) - Related Data Home Medications Medication Instructions Recorded Confirmed Etonogestrel [Nexplanon] 68 mg SQ DIRECTED 06/02/23 06/02/23 Previous Rx's Medication Instructions Recorded Nitrofurantoin Monohyd/M-Cryst 100 mg PO Q12HR #10 cap 07/07/23 [Macrobid] Allergies Allergy/AdvReac Type Severity Reaction Status Date / Time bee venom protein (honey bee) Allergy Swelling Verified 07/07/23 17:03 latex Allergy Rash/Hives Verified 07/07/23 17:03 tide Allergy Rash/Hives Uncoded 06/02/23 08:52 Review of Systems ROS Other: All systems not noted in ROS Statement are negative. <Fior Wray - Last Filed: 07/07/23 17:03> ROS Other: All systems not noted in ROS Statement are negative. <Ernesto Mckay - Last Filed: 07/07/23 20:40> ROS Statement: Those systems with pertinent positive or pertinent negative responses have been documented in the HPI. Past Medical History Past Medical History: Asthma, GERD/Reflux Additional Past Medical History / Comment(s): Hx kidney infections. "Stomach issues." Hx "chest pain and suspected Covid 07/12/21.",. SEVERE DIARRHEA, ABD PAIN History of Any Multi-Drug Resistant Organisms: None Reported Past Surgical History: Cholecystectomy Additional Past Surgical History / Comment(s): Pilonidal cyst removed. [place] teeth extracted. Past Anesthesia/Blood Transfusion Reactions: Motion Sickness Additional Past Anesthesia/Blood Transfusion Reaction / Comment(s): anesthesia with wisdom teeth Past Psychological History: ADD/ADHD, Anxiety, Depression Smoking Status: Former smoker, Vaper - Past Family History Mother Family Medical History: Cancer Additional Family Medical History / Comment(s): ADHD, hip dysplasia. <Fior Wray - Last Filed: 07/07/23 17:03> General Exam Limitations: no limitations <Fior Wray - Last Filed: 07/07/23 17:03> - General Exam Comments Initial Comments: Visual Physical Exam Vital signs reviewed General: Well-appearing, nontoxic, no acute distress. Head: Normocephalic, atraumatic Eyes: PERRLA, EOMI ENT: Airway patent Chest: Nonlabored breathing Skin: No visual rash, normal skin tone Neuro: Alert and oriented 3 Musculoskeletal: No gross abnormalities (Fior Wray) Course Vital Signs 07/07/23 16:59 Temperature 98.5 F Pulse Rate 97 Respiratory 18 Rate Blood Pressure 112/78 O2 Sat by Pulse 99 Oximetry EKG Findings - EKG Comments: EKG Findings:: EKG is sinus 61 NV 152 QRS 150 QTC 372 - EKG Results: EKG: interpreted by ERMD <Ernesto Mckay - Last Filed: 07/07/23 20:40> Medical Decision Making <Fior Wray - Last Filed: 07/07/23 17:03> - Medical Decision Making Quick note preformed by Fior Wray PA-C (Fior Wray) - Lab Data Lab Results 07/07/23 07/07/23 Range/Units 19:26 19:26 Urine Color Bison Urine Appearance Slightly Cloudy H (Clear) Urine RBC 8 H (0-5) /hpf Urine WBC 114 H (0-5) /hpf Ur Squamous Epith Cells 27 H (0-4) /hpf Urine Bacteria Occasional H (None) /hpf Urine Mucus Rare H (None) /hpf Urine HCG, Qual Not Detected (Not Detectd) Disposition <Fior Wray - Last Filed: 07/07/23 17:03> Is patient prescribed a controlled substance at d/c from ED?: No Time of Disposition: 20:00 <Ernesto Mckay - Last Filed: 07/07/23 20:40> Clinical Impression: Abdominal pain, UTI (urinary tract infection) Disposition: HOME SELF-CARE Condition: Good Instructions (If sedation given, give patient instructions): Abdominal Pain (ED), Urinary Tract Infection in Women (ED) Prescriptions: Nitrofurantoin Monohyd/M-Cryst [Macrobid] 100 mg PO Q12HR #10 cap Referrals: None,Stated [REFERRING] - 1-2 days
[2023-07-07 20:01] LABS: Bacteria,Urine Occasional /hpf; Mucus,Urine Rare /hpf; RBC,Urine 8 /hpf (0-5); Squamous Epithelial Cell,Urine 27 /hpf (0-4); WBC,Urine 114 /hpf (0-5)
[2023-07-07 20:26] LABS: Appearance,Urine Slightly Cloudy (Clear)
[2023-07-07 20:27] LABS: Color,Urine Orange
[2023-07-07] MEDS ORDERED: NITROFURANTOIN MONOHYD/M-CRYST 100 MG CAP PO STA (20:37)
[2023-07-07 21:15] VITALS: BP 113/74; PULSE 77
== END 2023-07-07 21:01 | disposition home or self-care (01) ==
LOC: EC 16:43
DX: N39.0 Urinary tract infection, site not specified (principal); J45.909 Unspecified asthma, uncomplicated; I49.8 Other specified cardiac arrhythmias; F12.90 Cannabis use, unspecified, uncomplicated; F17.290 Nicotine dependence, other tobacco product, uncomplicated; Z86.59 Personal history of other mental and behavioral disorders; Z91.030 Bee allergy status; Z91.040 Latex allergy status; Z90.49 Acquired absence of other specified parts of digestive tract; Z91.048 Other nonmedicinal substance allergy status
CPT/HCPCS: 81001; 81025; 87086; 93005; 99284

== ENCOUNTER 2023-11-15 19:04 | Emergency (ER) | payer OTHER ==
[2023-11-15 19:46] VITALS: RESP 18; TEMP 98
--- NOTE | 2023-11-15 20:18 | ED ---
Abdominal Pain HPI - General Source: patient Mode of arrival: ambulatory Limitations: no limitations <Roderick Deras - Last Filed: 11/15/23 20:18> <Tevin Andre - Last Filed: 11/15/23 22:29> - General Chief Complaint: Abdominal Pain Stated Complaint: Flank pain, 10 weeks Time Seen by Provider: 11/15/23 20:17 - History of Present Illness Initial Comments: 23-year-old female presenting to the ED with a chief complaint of abdominal pain. A0. Reports she is currently 10 weeks . Starting today notes left lower abdominal pain. Denies vaginal bleeding. Denies change in bowel or bladder habits. (Roderick Deras) Dictation was produced using [employer] dictation software. please excuse any grammatical, word or spelling errors. Chief Complaint: 23-year-old female presents to the emergency department with abdominal pain and back pain History of Present Illness: Patient 23-year-old female she is allegedly 10 weeks . She takes vitamins. 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 This is her second . She has 1 living child. States that she has history of urinary tract infections. She is concerned that she is having pyelonephritis because she is having pain in her left lower back. Patient also having shifting abdominal pain. No nausea vomiting. Vaginal discharge vaginal bleeding. Denies any obstipation. Having normal bowel movements. She does feel nauseated. The ROS documented in this emergency department record has been reviewed and confirmed by me. Those systems with pertinent positive or negative responses have been documented in the HPI. All other systems are other negative and/or noncontributory. (Tevin Andre) - Related Data Home Medications Medication Instructions Recorded Confirmed Etonogestrel [Nexplanon] 68 mg SQ DIRECTED 06/02/23 06/02/23 Previous Rx's Medication Instructions Recorded Nitrofurantoin Monohyd/M-Cryst 100 mg PO Q12HR #10 cap 07/07/23 [Macrobid] Cephalexin [Keflex] 500 mg PO Q6HR 5 Days #20 cap 11/15/23 Allergies Allergy/AdvReac Type Severity Reaction Status Date / Time bee venom protein (honey bee) Allergy Swelling Verified 07/07/23 17:03 latex Allergy Rash/Hives Verified 07/07/23 17:03 tide Allergy Rash/Hives Uncoded 06/02/23 08:52 Review of Systems ROS Other: All systems not noted in ROS Statement are negative. <Roderick Deras - Last Filed: 11/15/23 20:18> ROS Other: All systems not noted in ROS Statement are negative. <Tevin Andre - Last Filed: 11/15/23 22:29> ROS Statement: Those systems with pertinent positive or pertinent negative responses have been documented in the HPI. Past Medical History Past Medical History: Asthma, GERD/Reflux Additional Past Medical History / Comment(s): Hx kidney infections. "Stomach issues." Hx "chest pain and suspected Covid 07/12/21.",. SEVERE DIARRHEA, ABD PAIN History of Any Multi-Drug Resistant Organisms: None Reported Past Surgical History: Cholecystectomy Additional Past Surgical History / Comment(s): Pilonidal cyst removed. [place] teeth extracted. Past Anesthesia/Blood Transfusion Reactions: Motion Sickness Additional Past Anesthesia/Blood Transfusion Reaction / Comment(s): anesthesia with wisdom teeth Past Psychological History: ADD/ADHD, Anxiety, Depression Smoking Status: Former smoker, Vaper - Past Family History Mother Family Medical History: Cancer Additional Family Medical History / Comment(s): ADHD, hip dysplasia. <Roderick Deras - Last Filed: 11/15/23 20:18> General Exam Limitations: no limitations <Roderick Deras - Last Filed: 11/15/23 20:18> <Tevin Andre - Last Filed: 11/15/23 22:29> - General Exam Comments Initial Comments: Visual Physical Exam Vital signs reviewed General: Well-appearing, nontoxic, no acute distress. Head: Normocephalic, atraumatic Eyes: PERRLA, EOMI ENT: Airway patent Chest: Nonlabored breathing Skin: No visual rash, normal skin tone Neuro: Alert and oriented 3 Musculoskeletal: No gross abnormalities (Roderick Deras) PHYSICAL EXAM: General Impression: Alert and oriented x3, not in acute distress HEENT: Normocephalic atraumatic, extra-ocular movements intact, pupils equal and reactive to light bilaterally, mucous membranes moist. Cardiovascular: Heart regular rate and rhythm Chest: Able to complete full sentences, no retractions, no tachypnea Abdomen: abdomen soft, non-tender, non-distended, no organomegaly Musculoskeletal: Pulses present and equal in all extremities, no peripheral edema Motor: no focal deficits noted Neurological: CN II-XII grossly intact, no focal motor or sensory deficits noted Skin: Intact with no visualized rashes Psych: Normal affect and mood Pelvic exam: Refused (Tevin Andre) Course Vital Signs 11/15/23 19:09 Temperature 98 F Pulse Rate 98 Respiratory 18 Rate Blood Pressure 114/77 O2 Sat by Pulse 98 Oximetry Medical Decision Making <Roderick Deras - Last Filed: 11/15/23 20:18> - Lab Data Result diagrams: 11/15/23 21:04 11/15/23 21:04 <Tevin Andre - Last Filed: 11/15/23 22:29> - Medical Decision Making Quicknote portion performed. Signed Roderick Deras PA-C (Roderick Deras) Was pt. sent in by a medical professional or institution (WILIAM Ortega, [employer], urgent care, hospital, or shelter...) When possible be specific @ -No Did you speak to anyone other than the patient for history (EMS, parent, family, police, friend...)? What history was obtained from this source @ -No Did you review nursing and triage notes (agree or disagree)? Why? @ -I reviewed and agree with nursing and triage notes Were old charts reviewed (outside hosp., previous admission, EMS record, old EKG, old radiological studies, urgent care reports/EKG's, shelter records)? Report findings @ -No old charts were reviewed Differential Diagnosis (chest pain, altered mental status, abdominal pain women, abdominal pain men, vaginal bleeding, musculoskeletal, weakness, fever, dyspnea, syncope, headache, dizziness, GI bleed, back pain, seizure, CVA, palpatations, mental health)? @ -Not applicable EKG interpreted by me (3pts min.). @ -None done X-rays interpreted by me (1pt min.). @ -None done CT interpreted by me (1pt min.). @ -None done U/S interpreted by me (1pt. min.). @ -OB ultrasound shows intrauterine with some small subchorionic bleeding What testing was considered but not performed or refused? (CT, X-rays, U/S, labs)? Why? @ -None What meds were considered but not given or refused? Why? @ -None Did you discuss the management of the patient with other professionals (professionals i.e. , PA, [employer], lab, RT, psych nurse, social contact worker, conservation policy analyst, teacher, contracts officer, case management manager)? Give summary @ -No Was smoking cessation discussed for >3mins.? @ -No Was critical care preformed (if so, how long)? @ -No Were there social determinants of health that impacted care today? How? (Homeles sness, low income, unemployed, alcoholism, drug addiction, transportation, low edu. Level, literacy, decrease access to med. care, retirement, rehab)? @ -No Was there de-escalation of care discussed even if they declined (Discuss DNR or withdrawal of care, Hospice)? DNR status @ -No What co-morbidities impacted this encounter? (DM, HTN, Smoking, COPD, CAD, Cancer, CVA, ARF, Chemo, Hep., AIDS, mental health diagnosis, sleep apnea, morbid obesity)? @ -None Was patient admitted / discharged? Hospital course, mention meds given and route, prescriptions, significant lab abnormalities, going to OR and other pertinent info. @ -23-year-old female presents to the ER for abdominal pain and back pain in . Patient reports history of frequent UTIs. Vital signs upon arrival are within acceptable limits. Physical examination is benign. Patient well- appearing. Laboratory evaluation obtained. No leukocytosis. Hemoglobin stable. Metabolic panel within acceptable limits. Ultrasound shows live intrauterine with small subchorionic bleeding. Patient stated that she had to leave to medicinal plant picker her significant other. She did not want to stick around for her type and screen to determine if she needs RhoGAM. Patient was notified of her lab results that is positive for urinary tract infection. She is told that there is reasonable leave that she has pyelonephritis given that she has UTI with CVA pain. She did seem surprised that she was diagnosed with UTI. Patient agreeable to ceftriaxone. She is given prescription for Keflex. She wants to be notified of her type and screen results to determine if she needs to come back to receive RhoGAM. Patient does have CVA tenderness to the left raising suspicion of pyelonephritis. Patient given dose of ceftriaxone. Undiagnosed new problem with uncertain prognosis? @ -No Drug Therapy requiring intensive monitoring for toxicity (Heparin, Nitro, Insulin, Cardizem)? @ -No Were any procedures done? @ -No Diagnosis/symptom? Acute, or Chronic, or Acute on Chronic? Uncomplicated (without systemic symptoms) or Complicated (systemic symptoms)? @ -Urinary tract infection Side effects of treatment? @ -No Exacerbation, Progression, or Severe Exacerbation? @ -No Poses a threat to life or bodily function? How? (Chest pain, [place], [place], pneumonia, PE, COPD, DKA, ARF, appy, cholecystitis, CVA, Diverticulitis, Homicidal, Suicidal, threat to staff... and all critical care pts) @ -yes (Tevin Andre) - Lab Data Lab Results 11/15/23 11/15/23 11/15/23 Range/Units 19:15 21:04 21:04 WBC 9.8 (3.8-10.6) k/uL RBC 4.86 (3.80-5.40) m/uL Hgb 13.5 (11.4-16.0) gm/dL Hct 41.5 (34.0-46.0) % MCV 85.4 (80.0-100.0) fL MCH 27.7 (25.0-35.0) pg MCHC 32.4 (31.0-37.0) g/dL RDW 12.8 (11.5-15.5) % Plt Count 276 (150-450) k/uL MPV 6.8 Neutrophils % 73 % Lymphocytes % 19 % Monocytes % 5 % Eosinophils % 2 % Basophils % 0 % Neutrophils # 7.1 (1.3-7.7) k/uL Lymphocytes # 1.9 (1.0-4.8) k/uL Monocytes # 0.5 (0-1.0) k/uL Eosinophils # 0.2 (0-0.7) k/uL Basophils # 0.0 (0-0.2) k/uL Sodium 137 (137-145) mmol/L Potassium 3.8 (3.5-5.1) mmol/L Chloride 106 (98-107) mmol/L Carbon Dioxide 23 (22-30) mmol/L Anion Gap 8 mmol/L BUN 5 L (7-17) mg/dL Creatinine 0.49 L (0.52-1.04) mg/dL Est GFR (CKD-EPI)AfAm >90 (>60 ml/min/1.73 sqM) Est GFR (CKD-EPI)NonAf >90 (>60 ml/min/1.73 sqM) Glucose 84 (74-99) mg/dL Calcium 9.5 (8.4-10.2) mg/dL Total Bilirubin 0.2 (0.2-1.3) mg/dL AST 20 (14-36) U/L ALT 15 (4-34) U/L Alkaline Phosphatase 67 (38-126) U/L Total Protein 6.9 (6.3-8.2) g/dL Albumin 4.2 (3.5-5.0) g/dL Urine Color Yellow Urine Appearance Cloudy H (Clear) Urine pH 5.5 (5.0-8.0) Ur Specific [place] 1.030 (1.001-1.035) Urine Protein Trace H (Negative) Urine Glucose (UA) Negative (Negative) Urine Ketones Negative (Negative) Urine Blood Negative (Negative) Urine Nitrite Negative (Negative) Urine Bilirubin Negative (Negative) Urine Urobilinogen <2.0 (<2.0) mg/dL Ur Leukocyte Esterase Large H (Negative) Urine RBC 5 (0-5) /hpf Urine WBC 40 H (0-5) /hpf Ur Squamous Epith Cells 11 H (0-4) /hpf Urine Bacteria Occasional H (None) /hpf Urine Mucus Many H (None) /hpf Disposition <Roderick Deras - Last Filed: 11/15/23 20:18> Is patient prescribed a controlled substance at d/c from ED?: No Time of Disposition: 22:29 <Tevin Andre - Last Filed: 11/15/23 22:29> Clinical Impression: UTI (urinary tract infection) Disposition: HOME SELF-CARE Condition: Fair Prescriptions: Cephalexin [Keflex] 500 mg PO Q6HR 5 Days #20 cap Referrals: Jesús Guzman DO [Primary Care Provider] - 1-2 days
[2023-11-15 20:53] LABS: Appearance,Urine Cloudy (Clear); Bacteria,Urine Occasional /hpf; Bilirubin,Urine Negative (Negative); Blood,Urine Negative (Negative); Color,Urine Yellow; Glucose,Urine (UA) Negative (Negative); Ketones,Urine Negative (Negative); Leukocyte Esterase,Urine Large (Negative); Mucus,Urine Many /hpf; Nitrite,Urine Negative (Negative); PH, Urine 5.5 (5.0-8.0); Protein,Urine Trace (Negative); RBC,Urine 5 /hpf (0-5); Squamous Epithelial Cell,Urine 11 /hpf (0-4); Urobilinogen,Urine <2.0 mg/dL (<2.0); WBC,Urine 40 /hpf (0-5)
[2023-11-15 21:09] LABS: Basophils % (A) 0 %; Eosinophils # (A) 0.2 k/uL (0-0.7); Eosinophils % (A) 2 %; HCT 41.5 % (34.0-46.0); HGB 13.5 gm/dL (11.4-16.0); Lymphocytes # (A) 1.9 k/uL (1.0-4.8); Lymphocytes % (A) 19 %; MCH 27.7 pg (25.0-35.0); MCHC 32.4 g/dL (31.0-37.0); MCV 85.4 fL (80.0-100.0); Mean Platelet Volume 6.8; Monocytes # (A) 0.5 k/uL (0-1.0); Monocytes % (A) 5 %; Neutrophils # (A) 7.1 k/uL (1.3-7.7); Neutrophils % (A) 73 %; Platelet Count 276 k/uL (150-450); RBC 4.86 m/uL (3.80-5.40); RDW 12.8 % (11.5-15.5); WBC 9.8 k/uL (3.8-10.6)
--- NOTE | 2023-11-15 21:20 | US ---
EXAMINATION TYPE: Transabdominal DATE OF EXAM: 11/15/2023 9:02 PM COMPARISON: NONE CLINICAL INDICATION: Female, 23 years old with history of 10 wks LLQ pain; Patient states th at she is having left sided pain. She has had a prior ultrasound done at her OB EXAM PERFORMED: Transabdominal (TA) EXAM MEASUREMENTS: GESTATIONAL AGE / DATING Physician Established: (10 weeks/2 days) EDC: 06/10/2024 Dates by LMP: (10 weeks/2 days) EDC: 06/10/2024 Dates by First Scan: No previous this is first scan Dates by Current Scan for: (10 weeks/2 days) EDC: 06/10/2024 MATERNAL ANATOMY Uterus: 11.8 x 6.9 x 7.7cm. A single, live IUP is seen. Right Ovary: 2.3 x 1.6 x 1.5cm. WNL as best visualized today Left Ovary: 2.2 x 2.0 x 2.5cm. WNL as best visualized today Post CDS / Adnexa: WNL as best seen Presence of free fluid: No Presence of corpus luteal cyst: Not seen Presence of subchorionic bleed: Yes, there is a 1.6 x 0.5 x 1.4cm anechoic area seen adjacent to the gestational sac. GESTATION / SURVEY CRL: 3.3cm (10 weeks/2 days) Yolk Sac: appears WNL Heart Rate: 163 bpm Rhythm: Normal IUP: Viable IUP Beta HcG (if available): IMPRESSION: 1. Single viable intrauterine with an estimated age of 10 weeks and 2 days based on crown-r ump length 2. Small hypoechoic area adjacent to the gestational sac measuring 1.6 x 0.5 x 1.4 cm. This consisten t with a small subchorionic hemorrhage.
[2023-11-15 21:25] LABS: ALT 15 U/L (4-34); AST 20 U/L (14-36); African American GFR (CKD) >90 (>60 ml/min/1.73 sqM); Albumin 4.2 g/dL (3.5-5.0); Alkaline Phosphatase 67 U/L (38-126); Anion Gap 8 mmol/L; Blood Urea Nitrogen 5 mg/dL (7-17); Calcium 9.5 mg/dL (8.4-10.2); Carbon Dioxide 23 mmol/L (22-30); Chloride 106 mmol/L (98-107); Glucose 84 mg/dL (74-99); Non-African American GFR(CKD) >90 (>60 ml/min/1.73 sqM); Potassium 3.8 mmol/L (3.5-5.1); Sodium 137 mmol/L (137-145); Total Bilirubin 0.2 mg/dL (0.2-1.3); Total Protein 6.9 g/dL (6.3-8.2)
[2023-11-15] MEDS: cefTRIAXone IN SWFI 1,000 MG/10 ML SYRINGE IVP STA (22:38)
[2023-11-15] MEDS: SODIUM CHLORIDE 0.9% 1,000 ML IV STA (22:38)
[2023-11-15 23:04] VITALS: BP 122/72; PULSE 86
== END 2023-11-15 22:41 | disposition home or self-care (01) ==
LOC: EC 19:04
DX: O23.41 Unspecified infection of urinary tract in pregnancy, first trimester (principal); N39.0 Urinary tract infection, site not specified; O99.331 Smoking (tobacco) complicating pregnancy, first trimester; F17.200 Nicotine dependence, unspecified, uncomplicated; Z91.030 Bee allergy status; Z91.040 Latex allergy status; Z88.8 Allergy status to other drugs, medicaments and biological substances; Z3A.10 10 weeks gestation of pregnancy
CPT/HCPCS: 36415; 80053; 85025; 81001; 84702; 87086; 76801; 99284; 96374; J0696; 86850; 86900; 86901

== ENCOUNTER 2023-11-30 13:23 | Emergency (ER) | payer OTHER ==
[2023-11-30 13:41] VITALS: RESP 18
--- NOTE | 2023-11-30 13:47 | ED ---
General Adult HPI - General Chief complaint: Nausea/Vomiting/Diarrhea Stated complaint: Vomiting-12 weeks preg. Time Seen by Provider: 11/30/23 13:25 Source: patient, RN notes reviewed, old records reviewed Mode of arrival: ambulatory Limitations: no limitations - History of Present Illness Initial comments: This is a 23-year-old female who is 12 weeks . Patient states she started having vomiting earlier in the week and she went to another hospital and gave her fluids and she was feeling better. Patient was sent home with antifamily meds but she does not know what kind and she stated they work but this morning when she got up she had some chocolate milk and fruit but then she became very nauseated and vomited. Patient states just does not feel well. Patient denies any abdominal pain patient has any vaginal bleeding patient has any dysuria hematuria urinary frequency. Patient denies any fever chills or cough patient states she was recently treated for urinary tract infection she states she took all of her medications. - Related Data Home Medications Medication Instructions Recorded Confirmed Etonogestrel [Nexplanon] 68 mg SQ DIRECTED 06/02/23 06/02/23 Previous Rx's Medication Instructions Recorded Nitrofurantoin Monohyd/M-Cryst 100 mg PO Q12HR #10 cap 07/07/23 [Macrobid] Cephalexin [Keflex] 500 mg PO Q6HR 5 Days #20 cap 11/15/23 Allergies Allergy/AdvReac Type Severity Reaction Status Date / Time bee venom protein (honey bee) Allergy Swelling Verified 11/30/23 13:26 latex Allergy Rash/Hives Verified 11/30/23 13:26 tide Allergy Rash/Hives Uncoded 11/30/23 13:26 Review of Systems ROS Statement: Those systems with pertinent positive or pertinent negative responses have been documented in the HPI. ROS Other: All systems not noted in ROS Statement are negative. Past Medical History Past Medical History: Asthma, GERD/Reflux Additional Past Medical History / Comment(s): Hx kidney infections. "Stomach issues." Hx "chest pain and suspected Covid 07/12/21.",. SEVERE DIARRHEA, ABD PAIN History of Any Multi-Drug Resistant Organisms: None Reported Past Surgical History: Cholecystectomy Additional Past Surgical History / Comment(s): Pilonidal cyst removed. [place] teeth extracted. Past Anesthesia/Blood Transfusion Reactions: Motion Sickness Additional Past Anesthesia/Blood Transfusion Reaction / Comment(s): anesthesia with wisdom teeth Past Psychological History: ADD/ADHD, Anxiety, Depression Smoking Status: Current every day smoker, Vaper Past Alcohol Use History: None Reported Past Drug Use History: None Reported - Past Family History Mother Family Medical History: Cancer Additional Family Medical History / Comment(s): ADHD, hip dysplasia. General Exam - General Exam Comments Initial Comments: GENERAL: Patient is well-developed and well-nourished. Patient is nontoxic and well- hydrated and is in mild distress. ENT: Neck is soft and supple. No significant lymphadenopathy is noted. Oropharynx is clear. Moist mucous membranes. Neck has full range of motion without elici ting any pain. EYES: The sclera were anicteric and conjunctiva were pink and moist. Extraocular movements were intact and pupils were equal round and reactive to light. Eyelids were unremarkable. PULMONARY: Unlabored respirations. Good breath sounds bilaterally. No audible rales rhonchi or wheezing was noted. CARDIOVASCULAR: There is a regular rate and rhythm without any murmurs gallops or rubs. ABDOMEN: She has a gravid abdomen is nontender SKIN: Skin is clear with no lesions or rashes and otherwise unremarkable. NEUROLOGIC: Patient is alert and oriented x3. Cranial nerves II through XII are grossly intact. Motor and sensory are also intact. Normal speech, volume and content. Symmetrical smile. MUSCULOSKELETAL: Normal extremities with adequate strength and full range of motion. No lower extremity swelling or edema. No calf tenderness. LYMPHATICS: No significant lymphadenopathy is noted PSYCHIATRIC: Normal psychiatric evaluation. Limitations: no limitations Course Vital Signs 11/30/23 13:24 Temperature 97.8 F Pulse Rate 90 Respiratory 18 Rate Blood Pressure 122/81 O2 Sat by Pulse 98 Oximetry Medical Decision Making - Medical Decision Making Was pt. sent in by a medical professional or institution (, PA, BRASS BUFFER, urgent care, hospital, or usp...) When possible be specific @ -No Did you speak to anyone other than the patient for history (EMS, parent, family, police, friend...)? What history was obtained from this source @ -No Did you review nursing and triage notes (agree or disagree)? Why? @ -I reviewed and agree with nursing and triage notes Were old charts reviewed (outside hosp., previous admission, EMS record, old EKG, old radiological studies, urgent care reports/EKG's, usp records)? Report findings @ -I reviewed prior lab work because patient did not get any lab work done today because she did not want to get poked anymore. Differential Diagnosis (chest pain, altered mental status, abdominal pain women, abdominal pain men, vaginal bleeding, weakness, fever, dyspnea, syncope, headache, dizziness, GI bleed, back pain, seizure, CVA, palpatations, mental health, musculoskeletal)? @ -Hyperemesis gravidarum, viral syndrome, gastritis, this is not an all- inclusive list EKG interpreted by me (3pts min.). @ -As above X-rays interpreted by me (1pt min.). @ -None done CT interpreted by me (1pt min.). @ -None done U/S interpreted by me (1pt. min.). @ -None done What testing was considered but not performed or refused? (CT, X-rays, U/S, labs)? Why? @ -None What meds were considered but not given or refused? Why? @ -None Did you discuss the management of the patient with other professionals (professionals i.e. , PA, BRASS BUFFER, lab, RT, psych nurse, certified social workers in health care, family service assistant, teacher, chief credit officer, case management associate)? Give summary @ -No Was smoking cessation discussed for >3mins.? @ -No Was critical care preformed (if so, how long)? @ -No Were there social determinants of health that impacted care today? How? (Homelessness, low income, unemployed, alcoholism, drug addiction, tra nsportation, low edu. Level, literacy, decrease access to med. care, long term, rehab)? @ -No Was there de-escalation of care discussed even if they declined (Discuss DNR or withdrawal of care, Hospice)? DNR status @ -No What co-morbidities impacted this encounter? (DM, HTN, Smoking, COPD, CAD, Cancer, CVA, ARF, Chemo, Hep., AIDS, mental health diagnosis, sleep apnea, morbid obesity)? @ -None Was patient admitted / discharged? Hospital course, mention meds given and route, prescriptions, significant lab abnormalities, going to OR and other pertinent info. @ -Patient was poked multiple times for blood and an IV and then she refused because she has been [place] 5 times and she refused any more pokes. Patient was given Zofran at this time and after that she was able to drink full glass of water x 2. Patient was feeling considerably better and hungry and wanted to go home. Undiagnosed new problem with uncertain prognosis? @ -No Drug Therapy requiring intensive monitoring for toxicity (Heparin, Nitro, Insulin, Cardizem)? @ -No Were any procedures done? @ -No Diagnosis/symptom? @ -Hyperemesis Acute, or Chronic, or Acute on Chronic? @ -Acute Uncomplicated (without systemic symptoms) or Complicated (systemic symptoms)? @ -Uncomplicated Side effects of treatment? @ -No Exacerbation, Progression, or Severe Exacerbation? @ -No Poses a threat to life or bodily function? How? (Chest pain, [place], [place], pneumonia, PE, COPD, DKA, ARF, appy, cholecystitis, CVA, Diverticulitis, Homicidal, Suici ileana, threat to staff... and all critical care pts) @ -No - Lab Data Result diagrams: 11/30/23 14:12 Lab Results 11/30/23 11/30/23 Range/Units 14:00 14:12 WBC 7.6 (3.8-10.6) k/uL RBC 5.36 (3.80-5.40) m/uL Hgb 14.8 (11.4-16.0) gm/dL Hct 45.7 (34.0-46.0) % MCV 85.2 (80.0-100.0) fL MCH 27.5 (25.0-35.0) pg MCHC 32.3 (31.0-37.0) g/dL RDW 13.0 (11.5-15.5) % Plt Count 249 (150-450) k/uL MPV 7.4 Neutrophils % 76 % Lymphocytes % 17 % Monocytes % 4 % Eosinophils % 2 % Basophils % 1 % Neutrophils # 5.8 (1.3-7.7) k/uL Lymphocytes # 1.3 (1.0-4.8) k/uL Monocytes # 0.3 (0-1.0) k/uL Eosinophils # 0.1 (0-0.7) k/uL Basophils # 0.0 (0-0.2) k/uL Urine Color Colorless Urine Appearance Cloudy H (Clear) Urine pH 7.0 (5.0-8.0) Ur Specific [place] 1.016 (1.001-1.035) Urine Protein Negative (Negative) Urine Glucose (UA) Negative (Negative) Urine Ketones Negative (Negative) Urine Blood Negative (Negative) Urine Nitrite Negative (Negative) Urine Bilirubin Negative (Negative) Urine Urobilinogen <2.0 (<2.0) mg/dL Ur Leukocyte Esterase Large H (Negative) Urine RBC 2 (0-5) /hpf Urine WBC 8 H (0-5) /hpf Ur Squamous Epith Cells 11 H (0-4) /hpf Urine Mucus Occasional H (None) /hpf Disposition Clinical Impression: Hyperemesis gravidarum Disposition: HOME SELF-CARE Condition: Good Instructions (If sedation given, give patient instructions): Hyperemesis Gravidarum (ED) Additional Instructions: Patient to take Zofran as prescribed Is patient prescribed a controlled substance at d/c from ED?: No Referrals: Jesús Guzman DO [Primary Care Provider] - 1-2 days Time of Disposition: 15:49
[2023-11-30 14:20] LABS: Appearance,Urine Cloudy (Clear); Bilirubin,Urine Negative (Negative); Blood,Urine Negative (Negative); Color,Urine Colorless; Glucose,Urine (UA) Negative (Negative); Ketones,Urine Negative (Negative); Leukocyte Esterase,Urine Large (Negative); Mucus,Urine Occasional /hpf; Nitrite,Urine Negative (Negative); Protein,Urine Negative (Negative); RBC,Urine 2 /hpf (0-5); Specific Gravity,Urine 1.016 (1.001-1.035); Squamous Epithelial Cell,Urine 11 /hpf (0-4); Urobilinogen,Urine <2.0 mg/dL (<2.0); WBC,Urine 8 /hpf (0-5)
[2023-11-30 14:33] LABS: Basophils % (A) 1 %; Eosinophils # (A) 0.1 k/uL (0-0.7); Eosinophils % (A) 2 %; HCT 45.7 % (34.0-46.0); HGB 14.8 gm/dL (11.4-16.0); Lymphocytes # (A) 1.3 k/uL (1.0-4.8); Lymphocytes % (A) 17 %; MCH 27.5 pg (25.0-35.0); MCHC 32.3 g/dL (31.0-37.0); MCV 85.2 fL (80.0-100.0); Mean Platelet Volume 7.4; Monocytes # (A) 0.3 k/uL (0-1.0); Monocytes % (A) 4 %; Neutrophils # (A) 5.8 k/uL (1.3-7.7); Neutrophils % (A) 76 %; Platelet Count 249 k/uL (150-450); RBC 5.36 m/uL (3.80-5.40); WBC 7.6 k/uL (3.8-10.6)
[2023-11-30] MEDS: SODIUM CHLORIDE 0.9% 500 ML 500 ML IV ONE (14:55)
[2023-11-30] MEDS: SODIUM CHLORIDE 0.9% 1,000 ML IV ONE (14:55)
[2023-11-30] MEDS: ONDANSETRON 4 MG TAB PO STA (14:55)
[2023-11-30] MEDS: ONDANSETRON 4 MG/2 ML VIAL IVP STA (14:55)
[2023-11-30] MEDS: ONDANSETRON 4 MG ODT STARTER PACK 2 TAB BTL PO STA (15:55)
[2023-11-30 16:45] VITALS: BP 118/73; PULSE 88; TEMP 97.7
== END 2023-11-30 16:11 | disposition home or self-care (01) ==
LOC: EC 13:23
DX: O21.0 Mild hyperemesis gravidarum (principal); O99.331 Smoking (tobacco) complicating pregnancy, first trimester; F17.290 Nicotine dependence, other tobacco product, uncomplicated; Z91.030 Bee allergy status; Z91.040 Latex allergy status; Z91.041 Radiographic dye allergy status; Z3A.12 12 weeks gestation of pregnancy
CPT/HCPCS: 36415; 85025; 81001; 99284; S0119

== ENCOUNTER 2024-01-10 07:05 | Emergency (ER) | payer OTHER ==
[2024-01-10 07:11] VITALS: RESP 18
--- NOTE | 2024-01-10 07:41 | ED ---
General Adult HPI - General Chief complaint: Vaginal Bleeding Stated complaint: Vaginal Bleeding 18 weeks Time Seen by Provider: 01/10/24 07:14 Source: patient, RN notes reviewed, old records reviewed Mode of arrival: ambulatory Limitations: no limitations - History of Present Illness Initial comments: 23-year-old female presenting with lower abdominal cramping and vaginal bleeding which began just prior to arrival. Patient is currently 18 weeks . She is following with obstetrics. She states that several days ago she had some low er abdominal pain and back pain and was seen at outside hospital where she did have an ultrasound which confirmed normal heartbeat and no acute findings according to the patient. Patient states that her pain is improved. She has had no fever. No vomiting. This is her second and she has 1 living child. - Related Data Home Medications Medication Instructions Recorded Confirmed Etonogestrel [Nexplanon] 68 mg SQ DIRECTED 06/02/23 06/02/23 Previous Rx's Medication Instructions Recorded Nitrofurantoin Monohyd/M-Cryst 100 mg PO Q12HR #10 cap 07/07/23 [Macrobid] Cephalexin [Keflex] 500 mg PO Q6HR 5 Days #20 cap 11/15/23 Allergies Allergy/AdvReac Type Severity Reaction Status Date / Time bee venom protein (honey bee) Allergy Swelling Verified 01/10/24 07:11 latex Allergy Rash/Hives Verified 01/10/24 07:11 tide Allergy Rash/Hives Uncoded 01/10/24 07:11 Review of Systems ROS Statement: Those systems with pertinent positive or pertinent negative responses have been documented in the HPI. ROS Other: All systems not noted in ROS Statement are negative. Past Medical History Past Medical History: Asthma, GERD/Reflux Additional Past Medical History / Comment(s): Hx kidney infections. "Stomach issues." Hx "chest pain and suspected Covid 07/12/21.",. SEVERE DIARRHEA, ABD PAIN History of Any Multi-Drug Resistant Organisms: None Reported Past Surgical History: Cholecystectomy Additional Past Surgical History / Comment(s): Pilonidal cyst removed. [place] teeth extracted. Past Anesthesia/Blood Transfusion Reactions: Motion Sickness Additional Past Anesthesia/Blood Transfusion Reaction / Comment(s): anesthesia with wisdom teeth Past Psychological History: ADD/ADHD, Anxiety, Depression Smoking Status: Current every day smoker, Vaper Past Alcohol Use History: None Reported Past Drug Use History: None Reported - Past Family History Mother Family Medical History: Cancer Additional Family Medical History / Comment(s): ADHD, hip dysplasia. General Exam Limitations: no limitations General appearance: alert, in no apparent distress Head exam: Present: atraumatic, normocephalic Eye exam: Present: normal appearance, PERRL ENT exam: Present: normal exam Neck exam: Present: normal inspection. Absent: tenderness, meningismus Respiratory exam: Present: normal lung sounds bilaterally. Absent: respiratory distress, wheezes Cardiovascular Exam: Present: regular rate, normal rhythm GI/Abdominal exam: Present: soft. Absent: distended, tenderness, guarding, rebound Extremities exam: Present: normal inspection, normal capillary refill. Absent: pedal edema Neurological exam: Present: alert, oriented X3, CN II-XII intact. Absent: motor sensory deficit Psychiatric exam: Present: normal affect, normal mood Skin exam: Present: warm, dry, intact, normal color. Absent: cyanosis, diaphoretic Course Vital Signs 01/10/24 07:08 Temperature 98 F Pulse Rate 92 Respiratory 18 Rate Blood Pressure 116/76 O2 Sat by Pulse 100 Oximetry - Reevaluation(s) Reevaluation #1: 01/10/24 09:01 Patient states her bleeding has stopped and declines pelvic exam at this time. Medical Decision Making - Medical Decision Making Was pt. sent in by a medical professional or institution (WILIAM Ortega, PAYMENT REP, urgent care, hospital, or [facility]...) When possible be specific @ -No Did you speak to anyone other than the patient for history (EMS, parent, family, police, friend...)? What history was obtained from this source @ -No Did you review nursing and triage notes (agree or disagree)? Why? @ -I reviewed and agree with nursing and triage notes Were old charts reviewed (outside hosp., previous admission, EMS record, old EKG, old radiological studies, urgent care reports/EKG's, [facility] records)? Report findings @ -No old charts were reviewed Differential Diagnosis differential Vaginal Bleeding: Spontaneous , threatened , molar , ectopic , bloody show, incompetent cervix, abruptioplacenta, placenta previa, uterine rupture, dysfunctional uterine bleeding, hemorrhage, uterine fi broids, this is not meant to be an all-inclusive list. EKG interpreted by me (3pts min.). @ -As above X-rays interpreted by me (1pt min.). @ -None done CT interpreted by me (1pt min.). @ -None done U/S interpreted by me (1pt. min.). @Ultrasound showing single intrauterine without acute complication. Recommending full survey. What testing was considered but not performed or refused? (CT, X-rays, U/S, labs)? Why? @ -None What meds were considered but not given or refused? Why? @ -None Did you discuss the management of the patient with other professionals (professionals i.e. , PA, PAYMENT REP, lab, RT, psych nurse, social work associate, human geography faculty member, teacher, surveillance officer, keycase assembler)? Give summary @ -No Was smoking cessation discussed for >3mins.? @ -No Was critical care preformed (if so, how long)? @ -No Were there social determinants of health that impacted care today? How? (H omelessness, low income, unemployed, alcoholism, drug addiction, transportation, low edu. Level, literacy, decrease access to med. care, nursing home, rehab)? @ -No Was there de-escalation of care discussed even if they declined (Discuss DNR or withdrawal of care, Hospice)? DNR status @ -No What co-morbidities impacted this encounter? (DM, HTN, Smoking, COPD, CAD, Cancer, CVA, ARF, Chemo, Hep., AIDS, mental health diagnosis, sleep apnea, morbid obesity)? @ -None Was patient admitted / discharged? Hospital course, mention meds given and route, prescriptions, significant lab abnormalities, going to OR and other pertinent info. @ -23-year-old female at approximately 18 weeks gestation presenting with an episode of vaginal bleeding. Hemoglobin is stable. Other laboratory testing unremarkable. Ultrasound is not showing any acute findings. I do recommend close surveillance of bleeding and very close follow-up with her SCRUBBER OPERATOR. She should contact her women's health care nurse practitioner today and inform of all results. Undiagnosed new problem with uncertain prognosis? @ -No Drug Therapy requiring intensive monitoring for toxicity (Heparin, Nitro, Insulin, Cardizem)? @ -No Were any procedures done? @ -No Diagnosis/symptom? @Vaginal bleeding in Acute, or Chronic, or Acute on Chronic? @Acute Uncomplicated (without systemic symptoms) or Complicated (systemic symptoms)? @ -Default Side effects of treatment? @ -No Exacerbation, Progression, or Severe Exacerbation? @ -No Poses a threat to life or bodily function? How? (Chest pain, [place], [place], pneumonia, PE, COPD, DKA, ARF, appy, cholecystitis, CVA, Diverticulitis, Homicidal, Suicidal, threat to staff... and all critical care pts) @ -No - Lab Data Result diagrams: 01/10/24 07:45 01/10/24 07:45 Lab Results 01/10/24 01/10/24 01/10/24 Range/Units 07:45 07:45 07:45 WBC 9.1 (3.8-10.6) k/uL RBC 4.54 (3.80-5.40) m/uL Hgb 13.0 (11.4-16.0) gm/dL Hct 39.6 (34.0-46.0) % MCV 87.3 (80.0-100.0) fL MCH 28.6 (25.0-35.0) pg MCHC 32.8 (31.0-37.0) g/dL RDW 13.4 (11.5-15.5) % Plt Count 235 (150-450) k/uL MPV 7.5 Neutrophils % 78 % Lymphocytes % 15 % Monocytes % 4 % Eosinophils % 2 % Basophils % 1 % Neutrophils # 7.1 (1.3-7.7) k/uL Lymphocytes # 1.3 (1.0-4.8) k/uL Monocytes # 0.4 (0-1.0) k/uL Eosinophils # 0.2 (0-0.7) k/uL Basophils # 0.0 (0-0.2) k/uL Sodium 135 L (137-145) mmol/L Potassium 4.0 (3.5-5.1) mmol/L Chloride 110 H (98-107) mmol/L Carbon Dioxide 16 L (22-30) mmol/L Anion Gap 9 mmol/L BUN 5 L (7-17) mg/dL Creatinine 0.37 L (0.52-1.04) mg/dL Est GFR (CKD-EPI)AfAm >90 (>60 ml/min/1.73 sqM) Est GFR (CKD-EPI)NonAf >90 (>60 ml/min/1.73 sqM) Glucose 92 (74-99) mg/dL Calcium 9.3 (8.4-10.2) mg/dL Total Bilirubin 0.3 (0.2-1.3) mg/dL AST 22 (14-36) U/L ALT 9 (4-34) U/L Alkaline Phosphatase 61 (38-126) U/L Total Protein 6.4 (6.3-8.2) g/dL Albumin 3.7 (3.5-5.0) g/dL Urine Color Yellow Urine Appearance Cloudy H (Clear) Urine pH 6.0 (5.0-8.0) Ur Specific Royal 1.023 (1.001-1.035) Urine Protein Trace H (Negative) Urine Glucose (UA) Negative (Negative) Urine Ketones Negative (Negative) Urine Blood Negative (Negative) Urine Nitrite Negative (Negative) Urine Bilirubin Negative (Negative) Urine Urobilinogen <2.0 (<2.0) mg/dL Ur Leukocyte Esterase Large H (Negative) Urine RBC 8 H (0-5) /hpf Urine WBC 17 H (0-5) /hpf Ur Squamous Epith Cells 30 H (0-4) /hpf Hyaline Casts 2 (0-2) /lpf Urine Mucus Many H (None) /hpf Blood Type Blood Type Recheck Bld Type Recheck Status 01/10/24 Range/Units 08:00 WBC (3.8-10.6) k/uL RBC (3.80-5.40) m/uL Hgb (11.4-16.0) gm/dL Hct (34.0-46.0) % MCV (80.0-100.0) fL MCH (25.0-35.0) pg MCHC (31.0-37.0) g/dL RDW (11.5-15.5) % Plt Count (150-450) k/uL MPV Neutrophils % % Lymphocytes % % Monocytes % % Eosinophils % % Basophils % % Neutrophils # (1.3-7.7) k/uL Lymphocytes # (1.0-4.8) k/uL Monocytes # (0-1.0) k/uL Eosinophils # (0-0.7) k/uL Basophils # (0-0.2) k/uL Sodium (137-145) mmol/L Potassium (3.5-5.1) mmol/L Chloride (98-107) mmol/L Carbon Dioxide (22-30) mmol/L Anion Gap mmol/L BUN (7-17) mg/dL Creatinine (0.52-1.04) mg/dL Est GFR (CKD-EPI)AfAm (>60 ml/min/1.73 sqM) Est GFR (CKD-EPI)NonAf (>60 ml/min/1.73 sqM) Glucose (74-99) mg/dL Calcium (8.4-10.2) mg/dL Total Bilirubin (0.2-1.3) mg/dL AST (14-36) U/L ALT (4-34) U/L Alkaline Phosphatase (38-126) U/L Total Protein (6.3-8.2) g/dL Albumin (3.5-5.0) g/dL Urine Color Urine Appearance (Clear) Urine pH (5.0-8.0) Ur Specific Royal (1.001-1.035) Urine Protein (Negative) Urine Glucose (UA) (Negative) Urine Ketones (Negative) Urine Blood (Negative) Urine Nitrite (Negative) Urine Bilirubin (Negative) Urine Urobilinogen (<2.0) mg/dL Ur Leukocyte Esterase (Negative) Urine RBC (0-5) /hpf Urine WBC (0-5) /hpf Ur Squamous Epith Cells (0-4) /hpf Hyaline Casts (0-2) /lpf Urine Mucus (None) /hpf Blood Type O Positive Blood Type Recheck O Pos Bld Type Recheck Status No Disposition Clinical Impression: Vaginal bleeding in Disposition: HOME SELF-CARE Condition: Good Additional Instructions: Please call your women's health care nurse practitioner today and inform them of your emergency department evaluation and results. Is patient prescribed a controlled substance at d/c from ED?: No Referrals: Jesús Guzman DO [Primary Care Provider] - 1-2 days Time of Disposition: 08:58
[2024-01-10 07:51] LABS: Basophils % (A) 1 %; Eosinophils # (A) 0.2 k/uL (0-0.7); Eosinophils % (A) 2 %; HCT 39.6 % (34.0-46.0); Lymphocytes # (A) 1.3 k/uL (1.0-4.8); Lymphocytes % (A) 15 %; MCH 28.6 pg (25.0-35.0); MCHC 32.8 g/dL (31.0-37.0); MCV 87.3 fL (80.0-100.0); Mean Platelet Volume 7.5; Monocytes # (A) 0.4 k/uL (0-1.0); Monocytes % (A) 4 %; Neutrophils # (A) 7.1 k/uL (1.3-7.7); Neutrophils % (A) 78 %; Platelet Count 235 k/uL (150-450); RBC 4.54 m/uL (3.80-5.40); RDW 13.4 % (11.5-15.5); WBC 9.1 k/uL (3.8-10.6)
[2024-01-10 08:27] LABS: ALT 9 U/L (4-34); African American GFR (CKD) >90 (>60 ml/min/1.73 sqM); Albumin 3.7 g/dL (3.5-5.0); Anion Gap 9 mmol/L; Blood Urea Nitrogen 5 mg/dL (7-17); Calcium 9.3 mg/dL (8.4-10.2); Carbon Dioxide 16 mmol/L (22-30); Chloride 110 mmol/L (98-107); Glucose 92 mg/dL (74-99); Non-African American GFR(CKD) >90 (>60 ml/min/1.73 sqM); Sodium 135 mmol/L (137-145); Total Bilirubin 0.3 mg/dL (0.2-1.3); Total Protein 6.4 g/dL (6.3-8.2)
[2024-01-10 08:29] LABS: Appearance,Urine Cloudy (Clear); Bilirubin,Urine Negative (Negative); Blood,Urine Negative (Negative); Color,Urine Yellow; Glucose,Urine (UA) Negative (Negative); Hyaline Casts,Urine 2 /lpf (0-2); Ketones,Urine Negative (Negative); Leukocyte Esterase,Urine Large (Negative); Mucus,Urine Many /hpf; Nitrite,Urine Negative (Negative); Protein,Urine Trace (Negative); RBC,Urine 8 /hpf (0-5); Specific Gravity,Urine 1.023 (1.001-1.035); Squamous Epithelial Cell,Urine 30 /hpf (0-4); Urobilinogen,Urine <2.0 mg/dL (<2.0); WBC,Urine 17 /hpf (0-5)
[2024-01-10 08:38] LABS: AST 22 U/L (14-36)
[2024-01-10 08:39] LABS: Alkaline Phosphatase 61 U/L (38-126)
--- NOTE | 2024-01-10 08:45 | US ---
EXAMINATION TYPE: US OB >= 14 wk fetus DATE OF EXAM: 01/10/2024 COMPARISON: 11/15/2023 CLINICAL INDICATION: Female, 23 years old with history of Vaginal bleeding, 18 weeks ; Hx spo tting throughout that is heavier today; Cramping; patient is a smoker TECHNIQUE: Transabdominal (TA) GESTATIONAL AGE / DATING Physician Established: (18 weeks/2 days) EDC: 06/10/2024 Dates by LMP: ( weeks/ days) EDC: Dates by First Scan: (18 weeks/2 days) EDC: 06/10/2024 Dates by Current Scan: (19 weeks/2 days) EDC: 05/31/2024 Beta HCG (if available): [id number] on 11/15/2023 Not available at this time SURVEY IUP: Single PLACENTA: Posterior PREVIA: No Previa BERNARDINO: NA cm CERVICAL LENGTH (transabdominal: norm > 3.0cm): 3.5 cm CERVICAL LENGTH (transvaginal: norm> 2.5cm): NA cm (Supplemental transvaginal imaging performed to verify cervical length.) BIOMETRY PRESENTATION: Vertex LIE: Longitudinal BPD: 4.5 cm; Inaccurate head measurements due to lie; Otherwise WNL 19 weeks / 4 days HC: 15.5 cm; Inaccurate head measurements due to lie; Otherwise WNL 18 weeks / 4 days AC: 13.9 cm 19 weeks / 3 days FL: 3.0 cm 19 weeks / 3 days ESTIMATED WEIGHT IN GRAMS: 282 grams ESTIMATED WEIGHT IN LBS/OZ: 0 lbs. 10 oz. WEIGHT PERCENTAGE BASED ON ESTABLISHED DATES: 94% HC/AC: 1.11 Inaccurate head measurements due to lie; Otherwise WNL FL/AC: 22% Normal HEART RATE: 150 bpm RHYTHM: Normal MATERNAL WALL MEASUREMENT: NA cm from skin to anterior uterine wall (if exam limited due to body habi tus). ? Facial edema vs suboptimal angle IMPRESSION: 1. Single intrauterine gestation estimated at 19 weeks 2 days gestation based on current ultrasound m easurements. Cardiac activity measures 150 bpm. 2. There is difficulty with accurate measurements due to positioning. Subcutaneous edema of the face is not excluded. Follow-up small parts ultrasound evaluation is recommended
[2024-01-10 09:15] VITALS: BP 99/63; PULSE 68; TEMP 98.1
== END 2024-01-10 09:15 | disposition home or self-care (01) ==
LOC: EC 07:05
DX: O46.92 Antepartum hemorrhage, unspecified, second trimester (principal); O99.332 Smoking (tobacco) complicating pregnancy, second trimester; F17.290 Nicotine dependence, other tobacco product, uncomplicated; Z3A.19 19 weeks gestation of pregnancy; Z91.030 Bee allergy status; Z91.040 Latex allergy status; Z88.8 Allergy status to other drugs, medicaments and biological substances
CPT/HCPCS: 36415; 76805; 80053; 81001; 85025; 86900; 86901; 99284

== ENCOUNTER 2024-01-19 08:18 | Emergency (ER) | payer OTHER ==
[2024-01-19] MEDS: SODIUM CHLORIDE 0.9% 1,000 ML IV STA (08:51)
[2024-01-19] MEDS: METOCLOPRAMIDE 5 MG/ML 2 ML VIAL IVP STA (08:51)
--- NOTE | 2024-01-19 08:53 | ED ---
General Adult HPI - General Chief complaint: Dizziness Stated complaint: light headed/19 wks preg Time Seen by Provider: 01/19/24 08:21 Source: patient Mode of arrival: ambulatory Limitations: no limitations - History of Present Illness Initial comments: Dictation was produced using [employer] dictation software. please excuse any grammatical, word or spelling errors. Chief Complaint: 23-year-old female presents to the emergency department for lightheadedness and dizziness. History of Present Illness: Patient 23-year-old female presents to the emergency department for lightheadedness and dizziness. Patient states her symptoms have been ongoing with this . Patient is allegedly 19 weeks . Patient was at work when she started to feel lightheaded. States that she gets lightheaded whenever she stands up for more than 20 minutes. This has been an ongoing issue with this . At work she was told you either go home or c ome to the hospital. Patient denies any pelvic symptoms. Denies any headache. She does feel some twitching in the muscles of her face. The ROS documented in this emergency department record has been reviewed and confirmed by me. Those systems with pertinent positive or negative responses have been documented in the HPI. All other systems are other negative and/or noncontributory. - Related Data Home Medications Medication Instructions Recorded Confirmed Famotidine [Pepcid] 20 mg PO BID 01/19/24 01/19/24 Allergies Allergy/AdvReac Type Severity Reaction Status Date / Time bee venom protein (honey bee) Allergy Swelling Verified 01/19/24 09:19 latex Allergy Rash/Hives Verified 01/19/24 09:19 tide Allergy Rash/Hives Uncoded 01/19/24 09:19 Review of Systems ROS Statement: Those systems with pertinent positive or pertinent negative responses have been documented in the HPI. ROS Other: All systems not noted in ROS Statement are negative. Past Medical History Past Medical History: Asthma, GERD/Reflux Additional Past Medical History / Comment(s): Hx kidney infections. "Stomach issues." Hx "chest pain and suspected Covid 07/12/21.",. SEVERE DIARRHEA, ABD P AIN History of Any Multi-Drug Resistant Organisms: None Reported Past Surgical History: Cholecystectomy Additional Past Surgical History / Comment(s): Pilonidal cyst removed. [place] teeth extracted. Past Anesthesia/Blood Transfusion Reactions: Motion Sickness Additional Past Anesthesia/Blood Transfusion Reaction / Comment(s): anesthesia with wisdom teeth Past Psychological History: ADD/ADHD, Anxiety, Depression Smoking Status: Current every day smoker, Vaper Past Alcohol Use History: None Reported Past Drug Use History: None Reported - Past Family History Mother Family Medical History: Cancer Additional Family Medical History / Comment(s): ADHD, hip dysplasia. General Exam - General Exam Comments Initial Comments: PHYSICAL EXAM: General Impression: Alert and oriented x3, not in acute distress HEENT: Normocephalic atraumatic, extra-ocular movements intact, pupils equal and reactive to light bilaterally, mucous membranes moist. Cardiovascular: Heart regular rate and rhythm Chest: Able to complete full sentences, no retractions, no tachypnea Abdomen: abdomen soft, non-tender, non-distended, no organomegaly Musculoskeletal: Pulses present and equal in all extremities, no peripheral edema Motor: no focal deficits noted Neurological: CN II-XII grossly intact, no focal motor or sensory deficits noted Skin: Intact with no visualized rashes Psych: Normal affect and mood Limitations: no limitations Course Vital Signs 01/19/24 01/19/24 01/19/24 08:24 09:21 10:00 Temperature 97.9 F Pulse Rate 85 80 Respiratory 16 18 18 Rate Blood Pressure 103/68 89/50 83/48 O2 Sat by Pulse 99 99 Oximetry 01/19/24 10:38 Temperature Pulse Rate 82 Respiratory 18 Rate Blood Pressure 102/63 O2 Sat by Pulse 99 Oximetry - Reevaluation(s) Reevaluation #1: 01/19/24 09:27 Reviewed vitals performed by nurse was little hypotensive. 89/50. Patient was question whether she normally runs a little on the low side she says yes. She does follow-up with the [facility] in [place]. States that her next appointment is January 23. Medical Decision Making - Medical Decision Making Was pt. sent in by a medical professional or institution (, PA, PROTECTIVE SERVICES SOCIAL WORKER, urgent care, hospital, or jail...) When possible be specific @ -No Did you speak to anyone other than the patient for history (EMS, parent, family, police, friend...)? What history was obtained from this source @ -No Did you review nursing and triage notes (agree or disagree)? Why? @ -I reviewed and agree with nursing and triage notes Were old charts reviewed (outside hosp., previous admission, EMS record, old EKG, old radiological studies, urgent care reports/EKG's, jail records)? Report findings @ -No old charts were reviewed Differential Diagnosis (chest pain, altered mental status, abdominal pain women, abdominal pain men, vaginal bleeding, musculoskeletal, weakness, fever, dyspnea, syncope, headache, dizziness, GI bleed, back pain, seizure, CVA, palpatations, mental health)? @ -Differential Dizziness: Benign paroxysmal positional Vertigo, Menieres disease, otitis media, acoustic neuroma, vertebrobasilar insufficiency, cerebellar stroke, encephalitis, hypovolemic, arrhythmia, coronary artery syndrome, anemia, this is not meant to be an all-inclusive list EKG interpreted by me (3pts min.). @ -None done X-rays interpreted by me (1pt min.). @ -None done CT interpreted by me (1pt min.). @ -None done U/S interpreted by me (1pt. min.). @ -None done What testing was considered but not performed or refused? (CT, X-rays, U/S, labs)? Why? @ -None What meds were considered but not given or refused? Why? @ -None Was smoking cessation discussed for >3mins.? @ -No Were there social determinants of health that impacted care today? How? (Homelessness, low income, unemployed, alcoholism, drug addiction, transportation, low edu. Level, literacy, decrease access to med. care, residential, rehab)? @ -No Was there de-escalation of care discussed even if they declined (Discuss DNR or withdrawal of care, Hospice)? DNR status @ -No What co-morbidities impacted this encounter? (DM, HTN, Smoking, COPD, CAD, Cancer, CVA, ARF, Chemo, Hep., AIDS, mental health diagnosis, sleep apnea, morbid obesity)? @ -None Was patient admitted / discharged? Hospital course, mention meds given and route, prescriptions, significant lab abnormalities, going to OR and other pertinent info. @ -23-year-old female presents to the emergency department with dizziness. She is . Patient denies any pelvic complaints. Vital signs upon arrival are within acceptable limits. Patient was laying sideways resting comfortably in sleeping when nurse notified me that her blood pressure was low into the 80s over 50s. Patient given IV fluids. Laboratory evaluation obtained. CBC, metabolic panel is unremarkable. Patient given antinausea medications. Observed emergency department for 2 hours and 30 minutes. Repeat blood pressure is stable. Patient reevaluated bedside at 10:50 AM on to be stable medical addition. Patient will be discharged. Advised to follow-up closely with [facility]. Return precautions discussed. Did you discuss the management of the patient with other professionals (professionals i.e. , PA, PROTECTIVE SERVICES SOCIAL WORKER, lab, RT, psych nurse, social service technician, career information specialist, teacher, public records officer, case assembler)? Give summary @ -No Was critical care preformed (if so, how long)? @ -No Undiagnosed new problem with uncertain prognosis? @ -No Drug Therapy requiring intensive monitoring for toxicity (Heparin, Nitro, Insulin, Cardizem)? @ -No Were any procedures done? @ -No Diagnosis/symptom? Acute, or Chronic, or Acute on Chronic? Uncomplicated (without systemic symptoms) or Complicated (systemic symptoms)? @ -Dizziness Side effects of treatment? @ -No Exacerbation, Progression, or Severe Exacerbation? @ -No Poses a threat to life or bodily function? How? (Chest pain, [place], [place], pneumonia, PE, COPD, DKA, ARF, appy, cholecystitis, CVA, Diverticulitis, Homicidal, Suicidal, threat to staff... and all critical care pts) @ -No - Lab Data Result diagrams: 01/19/24 08:54 01/19/24 08:54 Lab Results 01/19/24 01/19/24 Range/Units 08:54 08:54 WBC 9.9 (3.8-10.6) k/uL RBC 4.58 (3.80-5.40) m/uL Hgb 12.9 (11.4-16.0) gm/dL Hct 40.6 (34.0-46.0) % MCV 88.8 (80.0-100.0) fL MCH 28.3 (25.0-35.0) pg MCHC 31.9 (31.0-37.0) g/dL RDW 13.2 (11.5-15.5) % Plt Count 220 (150-450) k/uL MPV 7.3 Neutrophils % 81 % Lymphocytes % 12 % Monocytes % 5 % Eosinophils % 1 % Basophils % 0 % Neutrophils # 8.0 H (1.3-7.7) k/uL Lymphocytes # 1.2 (1.0-4.8) k/uL Monocytes # 0.5 (0-1.0) k/uL Eosinophils # 0.1 (0-0.7) k/uL Basophils # 0.0 (0-0.2) k/uL Sodium 135 L (137-145) mmol/L Potassium 3.9 (3.5-5.1) mmol/L Chloride 107 (98-107) mmol/L Carbon Dioxide 22 (22-30) mmol/L Anion Gap 6 mmol/L BUN 6 L (7-17) mg/dL Creatinine 0.48 L (0.52-1.04) mg/dL Est GFR (CKD-EPI)AfAm >90 (>60 ml/min/1.73 sqM) Est GFR (CKD-EPI)NonAf >90 (>60 ml/min/1.73 sqM) Glucose 78 (74-99) mg/dL Calcium 9.6 (8.4-10.2) mg/dL Total Bilirubin 0.4 (0.2-1.3) mg/dL AST 17 (14-36) U/L ALT 7 (4-34) U/L Alkaline Phosphatase 59 (38-126) U/L Total Protein 6.5 (6.3-8.2) g/dL Albumin 3.9 (3.5-5.0) g/dL Disposition Clinical Impression: Dizziness Disposition: HOME SELF-CARE Condition: Good Instructions (If sedation given, give patient instructions): Dizziness (ED) Additional Instructions: follow up with [facility] Is patient prescribed a controlled substance at d/c from ED?: No Referrals: Jesús Guzman DO [Primary Care Provider] - 1-2 days Time of Disposition: 10:52
[2024-01-19 09:07] LABS: Basophils % (A) 0 %; Eosinophils # (A) 0.1 k/uL (0-0.7); Eosinophils % (A) 1 %; HCT 40.6 % (34.0-46.0); HGB 12.9 gm/dL (11.4-16.0); Lymphocytes # (A) 1.2 k/uL (1.0-4.8); Lymphocytes % (A) 12 %; MCH 28.3 pg (25.0-35.0); MCHC 31.9 g/dL (31.0-37.0); MCV 88.8 fL (80.0-100.0); Mean Platelet Volume 7.3; Monocytes # (A) 0.5 k/uL (0-1.0); Monocytes % (A) 5 %; Neutrophils % (A) 81 %; Platelet Count 220 k/uL (150-450); RBC 4.58 m/uL (3.80-5.40); RDW 13.2 % (11.5-15.5); WBC 9.9 k/uL (3.8-10.6)
[2024-01-19 09:22] LABS: ALT 7 U/L (4-34); AST 17 U/L (14-36); African American GFR (CKD) >90 (>60 ml/min/1.73 sqM); Albumin 3.9 g/dL (3.5-5.0); Alkaline Phosphatase 59 U/L (38-126); Anion Gap 6 mmol/L; Blood Urea Nitrogen 6 mg/dL (7-17); Calcium 9.6 mg/dL (8.4-10.2); Carbon Dioxide 22 mmol/L (22-30); Chloride 107 mmol/L (98-107); Glucose 78 mg/dL (74-99); Non-African American GFR(CKD) >90 (>60 ml/min/1.73 sqM); Potassium 3.9 mmol/L (3.5-5.1); Sodium 135 mmol/L (137-145); Total Bilirubin 0.4 mg/dL (0.2-1.3); Total Protein 6.5 g/dL (6.3-8.2)
[2024-01-19 09:23] VITALS: RESP 18
[2024-01-19 11:19] VITALS: BP 105/69; PULSE 85; TEMP 98
== END 2024-01-19 11:14 | disposition home or self-care (01) ==
LOC: EC 08:18
DX: O26.892 Other specified pregnancy related conditions, second trimester (principal); R42 Dizziness and giddiness; F17.290 Nicotine dependence, other tobacco product, uncomplicated; Z3A.19 19 weeks gestation of pregnancy; Z91.040 Latex allergy status; Z91.030 Bee allergy status; Z88.8 Allergy status to other drugs, medicaments and biological substances; Z11.52 Encounter for screening for COVID-19
CPT/HCPCS: 36415; 80053; 85025; 99284; 96374; 96361 ×2; J2765

== ENCOUNTER 2024-02-01 22:47 | Outpatient (CLI) | payer OTHER ==
[2024-02-01 23:47] LABS: Appearance,Urine Cloudy (Clear); Bacteria,Urine Occasional /hpf; Bilirubin,Urine Negative (Negative); Blood,Urine Negative (Negative); Color,Urine Colorless; Glucose,Urine (UA) Negative (Negative); Ketones,Urine Negative (Negative); Leukocyte Esterase,Urine Large (Negative); Mucus,Urine Moderate /hpf; Nitrite,Urine Negative (Negative); PH, Urine 6.5 (5.0-8.0); Protein,Urine Negative (Negative); RBC,Urine 2 /hpf (0-5); Specific Gravity,Urine 1.019 (1.001-1.035); Squamous Epithelial Cell,Urine 10 /hpf (0-4); Urobilinogen,Urine <2.0 mg/dL (<2.0); WBC,Urine 49 /hpf (0-5)
[2024-02-02 00:32] VITALS: BP 113/67; PULSE 110; RESP 17; TEMP 96.8
--- NOTE | 2024-02-18 09:33 | P.MSEPDOC ---
Presenting Problems - Arrival Data Date of Arrival on Unit: 02/02/24 Time of Arrival on Unit: 22:47 Mode of Transport: Ambulatory - Complaint OB-Reason for Admission/Chief Complaint: Pain Comment: 12/02, burning/stabbing, left lower belly Medical History - Information : 2 Para: 1 Term: 0 : 1 Abortions: Spontaneous or Elective: 0 Number of Living Children: 1 - Gestational Age Gestational Age by RYAN (wks/days): 21 Weeks and 4 Days Review of Systems - Review of Systems Constitutional: No problems Breast: No problems ENT: No problems Cardiovascular: No problems Respiratory: No problems Gastrointestinal: No problems Genitourinary: No problems Musculoskeletal: No problems Neurological: No problems Skin: No problems Vital Signs - Temperature Temperature: 96.8 F Temperature Source: Temporal Artery Scan - Pulse Right Pulse Rate: 110 Pulse Assessment Method: Pulse Oximetry - Respirations Respiratory Rate: 17 Oxygen Delivery Method: Room Air O2 Sat by Pulse Oximetry: 98 - Blood Pressure Right Arm Blood Pressure: 113/67 Blood Pressure Mean: 82 Blood Pressure Source: Automatic Cuff Medical Screen Scoring - Cervical Exam Dilation (cm): 0 Effacement (%): 0 Membranes: Intact - Assessment - Baby A Baseline FHR: 155 Physician Notification - Physician Notified Physician Notified Date: 02/01/24 Physician Notified Time: 23:52 Physician: Rhiannon Villa New Order Received: Yes (Cervical exam) - Notification Comment Comment: if cervical exam is closed/thick pt okay to d/c to home Maternal Triage Index - Maternal Triage Index Presenting for scheduled procedure w/no complaint: No - Stat/Priority 1 Stat Priority 1: No - Urgent/Priority 2 Urgent Priority 2: No - Prompt/Priority 3 Prompt Priority 3: No - Non-Urgent/Priority 4 Non-Urgent Priority 4: Yes Criteria Met for Priority 4: left lower belly pain not related to contractions Disposition - Disposition OB Disposition: Discharge to home Discharge Date: 02/02/24 Discharge Time: 00:04 I agree with the RN Medical Screening Exam: Yes Case reviewed; plan agreed upon as documented in EMR&OBIX.: Yes Diagnosis: RELATED CONDITIONS, UNSPECIFIED, SECOND TRIMESTER
== END 2024-02-02 00:04 | disposition home or self-care (01) ==
LOC: FBPOP 22:47
PROVIDERS: ATTEND Obstetrics & Gynecology Obstetrics
DX: O26.892 Other specified pregnancy related conditions, second trimester (principal); O99.332 Smoking (tobacco) complicating pregnancy, second trimester; F17.200 Nicotine dependence, unspecified, uncomplicated; R10.32 Left lower quadrant pain; Z3A.21 21 weeks gestation of pregnancy; Z91.030 Bee allergy status; Z91.040 Latex allergy status; Z88.8 Allergy status to other drugs, medicaments and biological substances
CPT/HCPCS: 81001; G0463; 99213

== ENCOUNTER 2024-03-21 13:26 | Outpatient (CLI) | payer OTHER ==
[2024-03-21 14:53] LABS: Amorphous Sediment,Urine Rare /hpf; Appearance,Urine Cloudy (Clear); Bacteria,Urine Rare /hpf; Bilirubin,Urine Negative (Negative); Blood,Urine Negative (Negative); Color,Urine Colorless; Glucose,Urine (UA) Negative (Negative); Ketones,Urine Negative (Negative); Leukocyte Esterase,Urine Large (Negative); Mucus,Urine Occasional /hpf; Nitrite,Urine Negative (Negative); PH, Urine 7.5 (5.0-8.0); Protein,Urine Negative (Negative); RBC,Urine 5 /hpf (0-5); Specific Gravity,Urine 1.011 (1.001-1.035); Squamous Epithelial Cell,Urine 18 /hpf (0-4); Urobilinogen,Urine <2.0 mg/dL (<2.0); WBC,Urine 41 /hpf (0-5)
[2024-03-21] MEDS: LACTATED RINGERS 1,000 ML IV ONE (15:46)
[2024-03-21 19:03] VITALS: BP 120/66; PULSE 125; RESP 16; TEMP 96.7
--- NOTE | 2024-04-10 11:20 | P.MSEPDOC ---
Presenting Problems - Arrival Data Date of Arrival on Unit: 03/21/24 Time of Arrival on Unit: 13:27 Mode of Transport: Ambulatory - Complaint OB-Reason for Admission/Chief Complaint: Other Comment: pt arrived as a DOM G 2 P1 EDC 06/10 PT HAS HAD CAARE AT [facility] PT ARRIVED C/O AG SHOOTING IN LOWER ABD AREA SINCE 5 AM PT DENIES ANY BLEEDING Medical History - Information : 2 Para: 1 Term: 1 : 0 Abortions: Spontaneous or Elective: 0 Number of Living Children: 1 - Gestational Age Gestational Age by RYAN (wks/days): 28 Weeks and 3 Days Review of Systems - Review of Systems Constitutional: No problems Breast: No problems ENT: No problems Cardiovascular: No problems Respiratory: No problems Gastrointestinal: No problems Genitourinary: No problems Musculoskeletal: No problems Neurological: No problems Skin: No problems Vital Signs - Temperature Temperature: 96.7 F Temperature Source: Oral - Pulse Right Brachial Pulse Rate: 125 Pulse Assessment Method: Automatic Cuff - Respirations Respiratory Rate: 16 Oxygen Delivery Method: Room Air O2 Sat by Pulse Oximetry: 97 - Blood Pressure Right Arm Blood Pressure: 120/66 Blood Pressure Mean: 84 Blood Pressure Source: Automatic Cuff Medical Screen Scoring - Cervical Exam Dilation (cm): 0 Effacement (%): 50 Membranes: Intact - Uterine Contractions Frequency From (mins): 0 Frequency To (mins): 0 Intensity: Mild Resting: Soft to palpation - Assessment - Baby A Baseline FHR: 140 Heart Rate - NICHD Category: Category I (Normal) NST: Reactive Physician Notification - Physician Notified Physician Notified Date: 03/21/24 Physician Notified Time: 14:12 Physician: DR FAUSTINA Lema Order Received: Yes - Notification Comment Comment: FFN, clean catch u/a, start iv and bolus with LR. May discharge to home with instructions Maternal Triage Index - Non-Urgent/Priority 4 Non-Urgent Priority 4: Yes Criteria Met for Priority 4: PT ARRIVED C/O LOWER ABD DISCOMFORT AND DENIES ANY BLEEDING OR LEAKING OF FLUID Disposition - Disposition OB Disposition: Discharge to home Discharge Date: 03/21/24 Discharge Time: 18:35 I agree with the RN Medical Screening Exam: Yes Case reviewed; plan agreed upon as documented in EMR&OBIX.: Yes Diagnosis: PAIN, UNSPECIFIED
== END 2024-03-21 18:35 | disposition home or self-care (01) ==
LOC: FBPOP 13:26
PROVIDERS: ATTEND Obstetrics & Gynecology
DX: O26.893 Other specified pregnancy related conditions, third trimester (principal); O99.332 Smoking (tobacco) complicating pregnancy, second trimester; F17.200 Nicotine dependence, unspecified, uncomplicated; R10.30 Lower abdominal pain, unspecified; Z3A.28 28 weeks gestation of pregnancy; Z91.030 Bee allergy status; Z91.040 Latex allergy status; Z91.048 Other nonmedicinal substance allergy status
CPT/HCPCS: 59025; 96360; 96367; 82731; 81001; 87086; G0463; 99213

== ENCOUNTER 2024-04-15 22:11 | Outpatient (CLI) | payer OTHER ==
[2024-04-15] MEDS: ACETAMINOPHEN TAB 325 MG TAB PO STA (23:36)
[2024-04-15 23:50] VITALS: BP 116/65; PULSE 100; RESP 16; TEMP 96.9
--- NOTE | 2024-05-21 02:11 | P.MSEPDOC ---
Presenting Problems - Arrival Data Date of Arrival on Unit: 04/15/24 Time of Arrival on Unit: 22:11 Mode of Transport: Ambulatory - Complaint OB-Reason for Admission/Chief Complaint: Rule Out PROM Comment: Patient presents to triage with complaint of possible SROM, not sure of time. Bilateral groin pain, and bilateral pedal edema. Medical History - Information : 2 Para: 1 Term: 0 : 1 Abortions: Spontaneous or Elective: 0 Number of Living Children: 1 - Gestational Age Gestational Age by RYAN (wks/days): 32 Weeks and 0 Days Review of Systems - Review of Systems Constitutional: No problems Breast: No problems ENT: No problems Cardiovascular: No problems Respiratory: No problems Gastrointestinal: No problems Genitourinary: No problems Musculoskeletal: No problems Neurological: No problems Skin: No problems Vital Signs - Temperature Temperature: 96.9 F Temperature Source: Temporal Artery Scan - Pulse Pulse Oximetery Pulse Rate: 100 Pulse Assessment Method: Pulse Oximetry - Respirations Respiratory Rate: 16 Oxygen Delivery Method: Room Air O2 Sat by Pulse Oximetry: 97 - Blood Pressure Right Arm Blood Pressure: 116/65 Blood Pressure Mean: 82 Blood Pressure Source: Automatic Cuff Medical Screen Scoring - Cervical Exam Membranes: Intact - Assessment - Baby A Baseline FHR: 130 Heart Rate - NICHD Category: Category I (Normal) NST: Reactive Physician Notification - Physician Notified Physician Notified Date: 04/15/24 Physician Notified Time: 23:18 Physician: Albert Salazar New Order Received: Yes (Tylenol for toothache and discharge home.) Maternal Triage Index - Maternal Triage Index Presenting for scheduled procedure w/no complaint: No - Stat/Priority 1 Stat Priority 1: No - Urgent/Priority 2 Urgent Priority 2: Yes Provider Notified: Albert Salazar Provider Notified Time: 23:18 Criteria Met for Priority 2: RN reports that patient presented to triage unsure of SROM, and bilateral groin pain. Stable VS, 36 wks gestation. Denies vaginal bleeding, States she is feeling baby move. Reactive NST, Cat I heart tones, 1 contraction traced in the hour shes been on the monitors. Amnisure negative. Disposition - Disposition OB Disposition: Discharge to home Discharge Date: 04/15/24 Discharge Time: 23:39 I agree with the RN Medical Screening Exam: Yes Physician's MSE Comment: I have neither seen nor examined the patient. Case reviewed; plan agreed upon as documented in EMR&OBIX.: Yes Diagnosis: RELATED CONDITIONS, UNSPECIFIED, THIRD TRIMESTER
== END 2024-04-15 23:39 | disposition home or self-care (01) ==
LOC: FBPOP 22:11
PROVIDERS: ATTEND Obstetrics & Gynecology
CPT/HCPCS: 59025; 84112; 99213

== ENCOUNTER 2024-05-13 11:25 | Outpatient (CLI) | payer OTHER ==
[2024-05-13 11:57] LABS: Glucose,Whole Blood 107 mg/dL (70-110)
[2024-05-13 12:11] VITALS: BP 132/80; PULSE 97; RESP 16; TEMP 97.3
--- NOTE | 2024-05-18 11:43 | P.MSEPDOC ---
Presenting Problems - Arrival Data Date of Arrival on Unit: 05/13/24 Time of Arrival on Unit: 11:26 Mode of Transport: Ambulatory - Complaint OB-Reason for Admission/Chief Complaint: Rule Out SROM, Pain Comment: DOM pt presents to triage with c/o leaking fluid since this morning which is clear/yellow, as well as pelvic pressure and cramping. Pt sees an OB at [facility] and is scheduled for IOL on 06/05. Pt rates cramping pain 6-7 out of 10, states it comes and goes. Pt rates pelvic pressure 9 out of 10, increases when she is walking. Medical History - Information : 2 Para: 1 Term: 1 : 0 Abortions: Spontaneous or Elective: 0 Number of Living Children: 1 - Gestational Age Gestational Age by RYAN (wks/days): 36 Weeks and 0 Days Review of Systems - Review of Systems Constitutional: No problems Breast: No problems ENT: No problems Cardiovascular: No problems Respiratory: No problems Gastrointestinal: No problems Genitourinary: No problems Musculoskeletal: No problems Neurological: No problems Skin: No problems Vital Signs - Temperature Temperature: 97.3 F Temperature Source: Temporal Artery Scan - Pulse Pulse Oximetery Pulse Rate: 97 Pulse Assessment Method: Pulse Oximetry - Respirations Respiratory Rate: 16 Oxygen Delivery Method: Room Air O2 Sat by Pulse Oximetry: 98 - Blood Pressure Right Arm Blood Pressure: 132/80 Blood Pressure Mean: 97 Blood Pressure Source: Automatic Cuff Medical Screen Scoring - Cervical Exam Dilation (cm): 1 Effacement (%): 50 Station: -3 Membranes: Intact - Assessment - Baby A Baseline FHR: 140 Heart Rate - NICHD Category: Category I (Normal) NST: Reactive Physician Notification - Physician Notified Physician Notified Date: 05/13/24 Physician Notified Time: 11:50 Physician: Tish Bhagat New Order Received: Yes - Notification Comment Comment: Dr. Bhagat called and notified of DOM pt of [facility], reporting to triage with c/o leaking "clear-yellow fluid" and cramping. Reported on physical assessment, vitals, reactive NST, 2 contractions noted per toco, negative amnisure, and cervical exam. Reported pt GDM, diet controlled and reports not monitoring BS at home. Orders for BS check before pt d/c home with follow up instrucitions. Order read back and confirmed. Maternal Triage Index - Maternal Triage Index Presenting for scheduled procedure w/no complaint: No - Stat/Priority 1 Stat Priority 1: No - Urgent/Priority 2 Urgent Priority 2: No - Prompt/Priority 3 Prompt Priority 3: Yes Criteria Met for Priority 3: c/o SROM 36 0/7 weeks Disposition - Disposition OB Disposition: Discharge to home, Written follow up instructions reviewed Discharge Date: 05/13/24 Discharge Time: 12:00 I agree with the RN Medical Screening Exam: Yes Physician's MSE Comment: I have neither seen nor examined the patient Case reviewed; plan agreed upon as documented in EMR&OBIX.: Yes Diagnosis: FALSE LABOR, UNSPECIFIED
== END 2024-05-13 12:00 | disposition home or self-care (01) ==
LOC: FBPOP 11:25
PROVIDERS: ATTEND Obstetrics & Gynecology
CPT/HCPCS: 59025; 84112; 99213; 99215